=== PATIENT | female | born 1945 | race Caucasian/White ===

== ENCOUNTER 2021-06-01 14:49 | Inpatient (IN) ==
[~2021-06-01 14:49] MED LIST: DEXAMETHASONE 10 MG/ML VIAL ONE; GLYCOPYRROLATE 0.2 MG/ML VIAL IV ONE; KETAMINE 50 MG/ML Syringe (ANEST) IV ONE; LIDOCAINE HCL/PF 100 MG/5 ML SYRINGE IV ONE; MAGNESIUM SULFATE 2 GM/50 ML BAG IV ONE; MIDAZOLAM 2 MG/2 ML VIAL ONE; ONDANSETRON 4 MG/2 ML VIAL ONE; PHENYLephrine 1 MG/10 ML SYRINGE (ANEST) ONE; PROPOFOL 200 MG/20 ML VIAL IV ONE; TRANEXAMIC ACID 1,000 MG/10 ML VIAL ONE
[2021-06-01 16:02] LABS: Basophils # (Auto) 0.04 K/mcL (0.00-0.30); Basophils % (Auto) 0.3 % (0.0-2.0); Eosinophils # (Auto) 0.08 K/mcL (0.00-0.70); Eosinophils % (Auto) 0.7 % (0.0-7.0); Hematocrit 41.8 % (34.1-44.9); Hemoglobin 14.1 g/dL (11.2-15.7); Lymphocytes % (Auto) 14.7 % (15.5-49.0); Mean Cell Volume 92.7 fL (80.0-100.0); Mean Corpuscular HGB Conc 33.7 g/dL (31.0-36.0); Mean Platelet Volume 10.2 fL (7.4-10.4); Monocytes # (Auto) 0.56 K/mcL (0.10-0.90); Monocytes % (Auto) 4.8 % (1.0-12.0); Neutrophils % (Auto) 79.5 % (38.0-78.0); Platelet Count 194 K/mcL (140-440); RBC 4.51 M/mcL (3.59-5.38); Red Cell Distribution Width 12.3 % (11.5-14.5); WBC 11.6 K/mcL (4.5-11.0)
--- NOTE | 2021-06-01 16:02 | Emergency Department Note ---
Fall HPI General Chief Complaint: Fall Stated Complaint: Fall out of chair Time Seen by Provider: 06/01/21 14:58 Source: EMS Mode of arrival: EMS Limitations: no limitations History of Present Illness HPI Narrative: 76-year-old female with past medical history of hypertension, hyperlipidemia, and diabetes not on insulin presents with right hip pain after a fall. She was sitting in a chair and slipped off falling onto her right side. She was able to get back into the chair with some help but has pain in her right hip area. Did not hit her head or lose consciousness. She has some skin tears on her right elbow and right knee but denies any pain in those areas. She has pain with any flexion of the hip. No headache, neck pain, numbness, weakness, or paresthesias. Not on anticoagulation. She denies any recent fever, cough, vomiting, abdominal pain, or dysuria. Received the tetanus vaccine in 2019. Related Data Allergies Allergy/AdvReac Type Severity Reaction Status Date / Time codeine Allergy Verified 06/01/21 14:53 Review of Systems ROS ROS Narrative: Narrative: Constitutional: Denies fever and chills Eyes: Denies vision change ENT ED: Denies ear pain and throat pain Cardiovascular: Denies chest pain and palpitations Respiratory: Denies shortness of breath and cough Gastrointestinal: Denies abdominal pain, nausea and vomiting Genitourinary: Denies dysuria and frequency Musculoskeletal: Reports joint pain (Right hip); Denies back pain Integumentary: Denies rash and lesions Neurological: Denies headache and weakness Psychiatric: Denies anxiety and depression Endocrine: Denies fatigue and heat or cold intolerance Hematological/Lymphatic: Denies easy bleeding and easy bruising [facility] Narrative Patient History Narrative: Narrative: Medical/Surgical/Family History All Active Problems (Updated 06/01/21 @ 17:22 by Moses García MD) Closed displaced fracture of right femoral neck (Acute) Social History Smoking Status: Never smoker Exam Narrative Narrative: Narrative: General Limitations: no limitations General appearance: Present alert and in no apparent distress Head Head: Present atraumatic and normocephalic Eye Eye: Present normal appearance, PERRL and EOMI; Absent scleral icterus and conjunctival injection ENT ENT: Present normal oropharynx and mucous membranes moist Neck Neck: Present full ROM and trachea midline; Absent tenderness, meningismus, lymphadenopathy and thyromegaly Chest Chest: Present symmetric chest wall rise Respiratory Respiratory: Present normal lung sounds bilaterally; Absent respiratory distress, wheezes, stridor, accessory muscle use and prolonged expiratory phase Cardiovascular Cardiovascular: Present regular rate and normal rhythm; Absent systolic murmur and diastolic murmur Adbominal Abdominal: Present soft; Absent distention, tenderness, guarding, rebound, rigidity, organomegaly and mass Extremities Extremities: Absent pedal edema, pretibial edema and calf tenderness Expanded Upper Extremity Elbow: Present full ROM; Absent tenderness, swelling and deformity Expanded Lower Extremity Hip/Pelvis: Present shortening and other (Tenderness to palpation over the late ral right hip; pain with hip flexion; able to wiggle toes, no sensory deficits; 2+ DP pulse; full range of motion of right knee and no tenderness) Back Back: Absent CVA tenderness (R), CVA tenderness (L) and spinous process ten derness Neurological Neurological: Present alert, oriented X3 and CN II-XII intact Psychiatric Psychiatric: Present normal affect and normal mood Skin Skin: Present warm (WNL), dry and other (Skin tears noted to the posterior right elbow and right knee) Course Consultations Consultation #1: Dr. Reina, orthopedics Time: 16:20 Consultation #2: Dr. Smith, hospitalist Time: 17:21 Vital Signs Vital signs: Vital Signs Temperature 99.2 F H 06/01/21 14:50 Pulse Rate 96 H 06/01/21 14:50 Respiratory Rate 16 06/01/21 14:50 Blood Pressure 155/83 06/01/21 14:50 Pulse Oximetry (%) 93 06/01/21 14:50 Temperature 99.2 F H 06/01/21 14:50 Pulse Rate 112 H 06/01/21 16:47 Respiratory Rate 16 06/01/21 14:50 Blood Pressure 131/67 06/01/21 16:47 Pulse Oximetry (%) 93 06/01/21 16:47 [facility] Narrative Medical decision making narrative: 76-year-old female presenting with right hip pain after a fall. Vital signs stable. Likely right hip fracture present. Tetanus is up-to-date. Will obtain x-rays as well as preoperative labs and studies. Patient does not want pain medication at this time. X-ray shows a right femoral neck fracture. No other injuries. Neurovascularly intact. Labs are normal. Discussed with Dr. Reina orthopedics, possible surgery in the morning. Patient endorsed to Dr. Smith for admission. Lab Data Lab results reviewed: Yes I reviewed the patient's lab results. Result diagrams: 06/01/21 15:38 06/01/21 15:38 Labs: Lab Results 06/01/21 06/01/21 06/01/21 Range/Units 15:38 15:38 15:38 WBC 11.6 H (4.5-11.0) K/mcL RBC 4.51 (3.59-5.38) M/mcL Hgb 14.1 (11.2-15.7) g/dL Hct 41.8 (34.1-44.9) % MCV 92.7 (80.0-100.0) fL MCH 31.3 (26.0-34.0) pg MCHC 33.7 (31.0-36.0) g/dL RDW 12.3 (11.5-14.5) % Plt Count 194 (140-440) K/mcL MPV 10.2 (7.4-10.4) fL Neut % (Auto) 79.5 H (38.0-78.0) % Lymph % (Auto) 14.7 L (15.5-49.0) % [place] % (Auto) 4.8 (1.0-12.0) % Eos % (Auto) 0.7 (0.0-7.0) % Baso % (Auto) 0.3 (0.0-2.0) % Lymph # (Auto) 1.70 (1.50-4.80) K/mcL [place] # (Auto) 0.56 (0.10-0.90) K/mcL Eos # (Auto) 0.08 (0.00-0.70) K/mcL Baso # (Auto) 0.04 (0.00-0.30) K/mcL Absolute Neutrophils 9.18 H (1.80-8.00) K/mcL PT 13.5 (11.9-14.5) sec INR 1.0 (0.9-1.1) APTT 29.7 (20.0-37.0) sec Sodium 134 (133-145) mmol/L Potassium 3.7 (3.3-5.1) mmol/L Chloride 97 (96-108) mmol/L Carbon Dioxide 23 (22-30) mmol/L Anion Gap 14.0 (8.0-16.0) BUN 17 (8-23) mg/dL Creatinine 0.6 (0.6-1.1) mg/dL GFR Calculation 88 Glucose 130 H (70-105) mg/dL Calcium 9.9 (8.6-10.4) mg/dL Total Bilirubin 0.3 (0.1-1.0) mg/dL AST 25 (<32) U/L ALT 41 H (<40) U/L Alkaline Phosphatase 62 (39-117) U/L Total Protein 6.7 (5.9-8.4) gm/dL Albumin 4.3 (3.2-5.2) gm/dL Globulin 2.4 (2.2-3.7) gm/dL Albumin/Globulin Ratio 1.8 (1.0-2.3) Radiology Data Radiology results reviewed: Yes I reviewed the patient's radiology results. Radiology results narrative: Ordering Physician: Moses García M.D. Date of Service: 06/01/21 Procedure(s): XR chest 1V Accession Number(s): [id number] CLINICAL INFORMATION: fall COMPARISON: None. FINDINGS: Heart size, mediastinum and pulmonary vessels are normal. Lungs are clear. No effusions or evidence of pneumothorax. No fracture identified IMPRESSION: Negative Interpreted and Authenticated by: Dhaval Tineo 06/01/21 Ordering Physician: Moses García M.D. Date of Service: 06/01/21 Procedure(s): XR hip RT comp 2VW Accession Number(s): [id number] CLINICAL INFORMATION: fall COMPARISON: None. FINDINGS: Moderately comminuted transcervical fracture right hip appreciated. The distal femur displaced 1 cm superiorly with respect to femoral head. Minimal angulation deformity. There is only mild degenerative change in both SI and hip joints. Soft tissues normal IMPRESSION: Displaced acute transcervical fracture of the right femoral neck Interpreted and Authenticated by: Dhaval Tineo 06/01/21 EKG Data EKG #1: EKG attestation: Yes I reviewed and interpreted this EKG. and Yes There are no EKG findings of acute coronary syndrome EKG results narrative: Normal sinus rhythm at [address] elevation or depression. No T wave inversions. Interpretation: no acute changes and normal EKG Pulse Oximetry Data Pulse Ox %: 95 Interpretation: Normal Discharge Plan Patient/Caregiver Discharge Instructions Pt seen by CANOE INSPECTOR/PA only: No Clinical Impression: Closed displaced fracture of right femoral neck Patient Disposition: Xfer As Inpt ([facility]) Condition: Fair Follow up with: Abril Hutchins MD [Primary Care Provider] -
--- NOTE | 2021-06-01 16:10 | XRay Report ---
CLINICAL INFORMATION: fall COMPARISON: None. FINDINGS: Heart size, mediastinum and pulmonary vessels are normal. Lungs are clear. No effusions or evidence of pneumothorax. No fracture identified IMPRESSION: Negative Interpreted and Authenticated by: Dhaval Tineo 06/01/21
[2021-06-01 16:24] LABS: ALT/SGPT 41 U/L (<40); AST/SGOT 25 U/L (<32); Albumin 4.3 gm/dL (3.2-5.2); Albumin/Globulin Ratio 1.8 (1.0-2.3); Alkaline Phosphatase 62 U/L (39-117); Bilirubin,Total 0.3 mg/dL (0.1-1.0); Blood Urea Nitrogen 17 mg/dL (8-23); Calcium 9.9 mg/dL (8.6-10.4); Carbon Dioxide 23 mmol/L (22-30); Chloride 97 mmol/L (96-108); Globulin 2.4 gm/dL (2.2-3.7); Glomerular Filtration Rate 88; Glucose 130 mg/dL (70-105)
[2021-06-01 16:35] LABS: Partial Thromboplastin Time 29.7 sec (20.0-37.0); Prothrombin Time 13.5 sec (11.9-14.5)
--- NOTE | 2021-06-01 16:55 | XRay Report ---
CLINICAL INFORMATION: fall COMPARISON: None. FINDINGS: Moderately comminuted transcervical fracture right hip appreciated. The distal femur displaced 1 cm superiorly with respect to femoral head. Minimal angulation deformity. There is only mild degenerative change in both SI and hip joints. Soft tissues normal IMPRESSION: Displaced acute transcervical fracture of the right femoral neck Interpreted and Authenticated by: Dhaval Tineo 06/01/21
--- NOTE | 2021-06-01 17:29 | Internal Med History&Physical ---
HPI History of Present Illness Patient information: Note initiated : 06/01/21 at 5:26 pm Service Date, if different from initiated Date: [] Patient: Jo-Ann Ho a 76 y/o F admitted on for Fall out of chair. Chief Complaint: [] History of present illness: Ms. Ho is a 76 year old F Presents the ED with right hip pain. She was at [facility] and slipped out of her chair falling on her right hip. He imaging and ER shows right hip frac ture. She has no chest pain shortness of breath or other complaints. Dr. Reina is contacted and perform surgery likely tomorrow. Patient states she took most of her medications already today. Review of Systems: Pertinent positives as above. Denies headache/fever/chills/nausea/vomiting/chest or abdominal pain/cough/dyspnea/diarrhea. Remaining 10 point review of system reviewed negative PFSH PFSH All Active Problems (Updated 06/01/21 @ 17:22 by Moses García MD) Closed displaced fracture of right femoral neck (Acute) MEDS/ALLERGIES Home Medications and Allergies Allergies Allergy/AdvReac Type Severity Reaction Status Date / Time codeine Allergy Verified 06/01/21 14:53 EXAM Constitutional Vitals: Temp Pulse Resp BP Pulse Ox 99.2 F H 112 H 16 131/67 93 06/01/21 14:50 06/01/21 16:47 06/01/21 14:50 06/01/21 16:47 06/01/21 16:47 Exam: General: Alert, Awake, No acute Distress Eyes/N/T: EOMI, PERRL, Head/Neck: neck supple, normocephalic atraumatic CV: RRR, No murmurs, normal s1/s2 Pulm: Clear b/l, no wheezing/rhonchi/rales Abd: soft, nontender, +BS x4 Ext: no clubbing/cyanosis/edema Neuro: Alert, no focal deficits, moves all extremities, CN 2-12 grossly intact, sensations intact b/l upper/lower Skin: warm/dry DATA Data Completed and Pending Labs: Labs from last 24 hours 06/01/21 06/01/21 06/01/21 15:38 15:38 15:38 WBC 11.6 H RBC 4.51 Hgb 14.1 Hct 41.8 MCV 92.7 MCH 31.3 MCHC 33.7 RDW 12.3 Plt Count 194 MPV 10.2 Neut % (Auto) 79.5 H Lymph % (Auto) 14.7 L [place] % (Auto) 4.8 Eos % (Auto) 0.7 Baso % (Auto) 0.3 Lymph # (Auto) 1.70 [place] # (Auto) 0.56 Eos # (Auto) 0.08 Baso # (Auto) 0.04 Absolute Neutrophils 9.18 H PT 13.5 INR 1.0 APTT 29.7 Sodium 134 Potassium 3.7 Chloride 97 Carbon Dioxide 23 Anion Gap 14.0 BUN 17 Creatinine 0.6 GFR Calculation 88 Glucose 130 H Calcium 9.9 Total Bilirubin 0.3 AST 25 ALT 41 H Alkaline Phosphatase 62 Total Protein 6.7 Albumin 4.3 Globulin 2.4 Albumin/Globulin Ratio 1.8 A/P Narrative A/P Narrative: A: *Right hip fracture: *DM: *Depression/anxiety: *HTN: *Hypothyroidism: P: -Dr. Reina for orthopedic surgery -Pain per Ortho -Continue home psych meds -Continue ACEI -Hold home aspirin -SSI -Medication reconciliation -PT/OT -ppx: SCD (postop per Ortho) Time Spent With Patient Time: Total time spent is greater than 50% in coordination of care (as documented) at patient's floor/unit and/or counseling patient:
--- NOTE | 2021-06-01 18:01 | History and Physical Report ---
DATE OF ADMISSION: 06/01/2021 CHIEF COMPLAINT: Right hip pain, status post fall. HISTORY OF PRESENT ILLNESS: The patient is a 76-year-old female, who was sitting in her chair earlier today when she did slip and fall out of the chair and landing on her right side. She had immediate pain and dysfunction, was unable to get back into her chair. She denies hitting her head or loss of consciousness. However, she does have some skin tears on her right elbow and knee, but denies pain. She is unable to move her right hip joint. PAST MEDICAL HISTORY: Positive for hypertension, hyperlipidemia, and diabetes. PAST SURGICAL HISTORY: Positive for appendectomy, cholecystectomy, and breast reduction. MEDICATIONS: The patient could not recall what medication she was taking at that time and is not currently listed in her chart. REVIEW OF SYSTEMS: Positive for shoulder pain. PHYSICAL EXAMINATION: VITAL SIGNS: Most recent vital signs show a temperature of 99.2, pulse rate of 96, respiratory rate 16, blood pressure 155/83, pulse ox 93%. HEART: Regular, mildly tachycardic. LUNGS: Clear to auscultation bilaterally. EXTREMITIES: Right hip, she is unable to actively or passively move the hip due to pain. She does have a slightly shortened internally rotated right lower extremity. She does have tenderness to palpation over the right greater trochanter. She does have some mild swelling and ecchymosis noted. She is able to plantar flex and dorsiflex the right ankle. She has palpable pedal pulse and good capillary refill. Left lower extremity, she has 5/5 strength in the ankle at the plantar flexion and dorsiflexion. She is able to flex and extend her left knee as well as actively flex the left hip. She has no tenderness to palpation or swelling, palpable pedal pulse and good capillary refill. DIAGNOSTIC DATA: Review of x-rays, 3-view of the hip do show displaced right femoral neck fracture. These were reviewed with Dr. Reina today. Pertinent lab work, white count is mildly elevated at 11.6. IMPRESSION: There is a right displaced femoral neck fracture. PLAN: The patient would like to proceed with a right hemihip arthroplasty to be performed by Dr. Hudson. I did have a long discussion with the patient as well as her and her sister regarding the procedure and the postoperative protocol. I advised the patient of risk of surgery including bleeding; infection; injuring nerves, blood vessels, other structures in the area; anesthetic risk which may lead to potential heart attacks, stroke, or even . The patient was agreeable to this. We will proceed with surgery tomorrow morning or early afternoon. CHATO:feb Job ID: [id number] Doc ID: [id number] Gulshan Whatley PA-C
--- NOTE | 2021-06-01 18:39 | EKG ---
[facility] Test Date: 2021-06-01 Pat Name: Jo-Ann Ho Department: ED Room: Gender: Female Parking Station Attendant: HS : 1945 Requested By: Moses García Order Number: [id number] Reading MD: Gene Whipple Measurements Intervals Gracey Rate: 99 P: 52 MT: 176 QRS: -66 QRSD: 82 T: 16 QT: 344 QTc: 442 Interpretive Statements SINUS RHYTHM PROBABLE INFERIOR INFARCT, AGE INDETERMINATE Electronically Signed On 06-01-2021 18:38:53 PDT by Gene Whipple /store/M0/[id number].pdf
[2021-06-01] MEDS ORDERED: MAG HYDROX/AL HYDROX/SIMETH 30 ML ORAL.SUSP PO PRN (19:42)
[2021-06-01] MEDS ORDERED: POTASSIUM CHLORIDE 40 MEQ in DEXTROSE 5% IN WATER 500 ML IV PRN (19:56)
[2021-06-01] MEDS ORDERED: hydrALAZINE 20 MG/ML VIAL IV PRN (19:56)
[2021-06-01] MEDS ORDERED: POTASSIUM CHLORIDE 20 MEQ TABLET PO PRN ×2 (19:56)
[2021-06-01] MEDS ORDERED: IPRATROPIUM/ALBUTEROL 3 ML AMPUL.NEB NEB PRN (19:56)
[2021-06-01] MEDS ORDERED: POLYETHYLENE GLYCOL 3350 17 GM PACKET PO PRN (19:56)
[2021-06-01] MEDS ORDERED: morphine 4 MG/ML VIAL IV PRN (19:56)
[2021-06-01] MEDS ORDERED: METOCLOPRAMIDE 10 MG/2 ML VIAL IV PRN (19:56)
[2021-06-01] MEDS ORDERED: DEXTROSE 31 GM ORAL.SUSP PO PRN (19:56)
[2021-06-01] MEDS ORDERED: MAGNESIUM SULFATE 2 GM/50 ML BAG IV PRN (19:56)
[2021-06-01] MEDS ORDERED: ONDANSETRON 4 MG/2 ML VIAL IV PRN (19:56)
[2021-06-01] MEDS ORDERED: DEXTROSE 50% 50 ML VIAL IV PRN (19:56)
[2021-06-01] MEDS ORDERED: SENNOSIDES 1 TABLET PO PRN (19:56)
[2021-06-01] MEDS: DOCUSATE SODIUM 100 MG CAPSULE PO SCH (20:24)
[2021-06-01] MEDS ORDERED: AMITRIPTYLINE 10 MG TABLET PO SCH (21:00)
[2021-06-01] MEDS: INSULIN LISPRO 1 UNIT/0.01 ML UNIT SQ SCH (21:12)
[2021-06-01] MEDS: 0.9 % SODIUM CHLORIDE 10 ML SYRINGE IV SCH (21:13)
[2021-06-01] MEDS: HYDROcodone/APAP 5/325MG TABLET PO PRN (21:16)
[2021-06-02] MEDS: 0.9 % SODIUM CHLORIDE 10 ML SYRINGE IV SCH ×3 (04:10→21:34)
[2021-06-02] MEDS ORDERED: SCOPOLAMINE 1 PATCH PATCH TOPICAL PRN (06:30)
[2021-06-02] MEDS ORDERED: IPRATROPIUM/ALBUTEROL 3 ML AMPUL.NEB NEB PRN ×2 (06:30→08:58)
[2021-06-02] MEDS ORDERED: ceFAZolin 2 GM in DEXTROSE 5% IN WATER 50 ML IV SCH ×2 (07:15→09:00)
[2021-06-02] MEDS: INSULIN LISPRO 1 UNIT/0.01 ML UNIT SQ SCH ×4 (07:15→21:34)
--- NOTE | 2021-06-02 08:07 | Internal Med Progress Note ---
SUBJECTIVE Subjective Patient information: Note initiated : 06/02/21 at 8:05 am Service Date, if different from initiated Date: [] Patient: Jo-Ann Ho a 76 y/o F admitted on 06/01/21 for Fall out of chair. Chief Complaint: [] Interval history: History of present illness: Ms. Ho is a 76 year old F Presents the ED with right hip pain. She was at [facility] and slipped out of her chair falling on her right hip. He imaging and ER shows right hip fracture. She has no chest pain shortness of breath or other complaints. Dr. Reina is contacted and perform surgery likely tomorrow. Patient states she took most of her medications already today. 06/02 Patient now status post hemiarthroplasty. Pain controlled. Review of Systems: denies headache/fever/chills/nausea/vomiting/chest or abdominal pain/cough/dyspnea/diarrhea. Otherwise see above. Constitutional Vitals: Vital Signs Temp Pulse Resp BP Pulse Ox 98 F 99 H 20 118/69 93 06/02/21 04:15 06/02/21 04:15 06/02/21 04:15 06/02/21 04:15 06/02/21 04:15 Period Temp Pulse Resp BP Sys/Agrawal Pulse Ox Last 24 Hr 97.8 F-99.2 F 95-121 16-26 115-155/62-139 84-97 Intake and Output 06/01/21 06/02/21 06/02/21 21:59 05:59 13:59 Intake Total 480 Output Total 425 Balance 55 Weight 58.513 kg Intake & Output: Intake & Output 06/01/21 06/02/21 06/02/21 21:59 05:59 13:59 Intake Total 480 Output Total 425 Balance 55 Weight 58.513 kg Intake: Oral 480 Output: Urine Catheter Amount 425 Other: Urine Appearance Clear Urine Color Dark Yellow Uretheral (Boogie) Bright Yellow Urine Odor Strong Exam: General: Alert, Awake, No acute Distress Eyes/N/T: EOMI, Head/Neck: neck supple, CV: RRR, No murmurs, Pulm: Clear b/l, no wheezing/rhonchi/rales Abd: soft, nontender, +BS x4 Ext: no clubbing/cyanosis/edema Neuro: Alert, no focal deficits, moves all extremities, Skin: warm/dry OBJ DATA Labs CBC & Chem 7: 06/01/21 15:38 06/01/21 15:38 Labs: Abnormal Lab Results 06/01/21 06/01/21 15:38 15:38 WBC 11.6 H Neut % (Auto) 79.5 H Lymph % (Auto) 14.7 L Absolute Neutrophils 9.18 H Glucose 130 H ALT 41 H Meds: Medications Acetaminophen (Acetaminophen 325 Mg Tablet) 650 mg PO Q6HP PRN; Protocol PRN Reason: Per Pain Protocol/Fever > 101 Hydrocodone Bitart/Acetaminophen (Hydrocodone/Apap 5/325mg Tablet) 1 tab PO Q4HP PRN PRN Reason: PAIN LEVEL 3-6 Last Admin: 06/01/21 21:16 Dose: 1 tab Documented by: Al Hydrox/Mg Hydrox/Simethicone (Mag Hydrox/Al Hydrox/Simeth 30 Ml Oral.Susp) 30 ml PO Q4-6HP PRN PRN Reason: Dyspepsia Albuterol/Ipratropium (Ipratropium/Albuterol 3 Ml Ampul.Neb) 3 ml NEB Q4HP PRN PRN Reason: Shortness Of Breath Albuterol/Ipratropium (Ipratropium/Albuterol 3 Ml Ampul.Neb) 3 ml NEB ONCE PRN PRN Reason: Shortness Of Breath Stop: 06/02/21 16:30 Amitriptyline HCl (Amitriptyline 10 Mg Tablet) 10 mg PO [facility] Last Admin: 06/01/21 21:13 Dose: 10 mg Documented by: Dextrose (Dextrose 50% 50 Ml Vial) 0 ml IV UD PRN PRN Reason: Hypoglycemia Diagnostic Test (Pha) (Accu-Chek 1 Each Strip) 1 each FS [facility] Last Admin: 06/02/21 07:13 Dose: Not Given Documented by: Docusate Sodium (Docusate Sodium 100 Mg Capsule) 100 mg PO BID [facility] Last Admin: 06/01/21 20:24 Dose: Not Given Documented by: Glucose (Dextrose 31 Gm Oral.Susp) 15 gm PO PRN PRN PRN Reason: Hypoglycemia Hydralazine HCl (Hydralazine 20 Mg/Ml Vial) 0 mg IV Q2HP PRN PRN Reason: Hypertension Potassium Chloride 40 meq/ (Dextrose) 520 mls @ 130 mls/hr IV UD PRN PRN Reason: Potassium < 3 Magnesium Sulfate (Magnesium Sulfate) 2 gm in 50 mls @ 50 mls/hr IV UD PRN PRN Reason: Magnesium </= 1.6 Sodium Chloride (Sodium Chloride 0.9%) 1,000 mls @ 50 mls/hr IV .Q20H [facility] Last Admin: 06/02/21 00:00 Dose: 50 mls/hr Documented by: Cefazolin Sodium 2 gm/ (Dextrose) 50 mls @ 100 mls/hr IV PREOP ISAIAH; Protocol Stop: 06/02/21 17:00 Insulin Human Lispro (Insulin Lispro 1 Unit/0.01 Ml Unit) 0 unit SQ ACHS [facility]; Protocol Last Admin: 06/02/21 07:15 Dose: Not Given Documented by: Metoclopramide HCl (Metoclopramide 10 Mg/2 Ml Vial) 10 mg IV Q6HP PRN PRN Reason: Nausea And Vomiting Morphine Sulfate (Morphine 4 Mg/Ml Vial) 0 mg IV Q3HP PRN PRN Reason: Pain Last Admin: 06/02/21 04:09 Dose: 2 mg Documented by: Ondansetron HCl (Ondansetron 4 Mg/2 Ml Vial) 4 mg IV Q4HP PRN PRN Reason: Nausea And Vomiting Polyethylene Glycol (Polyethylene Glycol 3350 17 Gm Packet) 17 gm PO DAILYP PRN PRN Reason: Constipation Potassium Chloride (Potassium Chloride 20 Meq Tablet) 40 meq PO UD PRN PRN Reason: Potssium is 3-3.5 Potassium Chloride (Potassium Chloride 20 Meq Tablet) 40 meq PO UD PRN PRN Reason: Potassium < 3 Scopolamine (Scopolamine 1 Patch Patch) 1 patch TOPICAL PREOP PRN PRN Reason: Nausea And Vomiting Stop: 06/02/21 16:30 Senna (Sennosides 1 Tablet) 2 tab PO DAILYP PRN PRN Reason: Constipation Sodium Chloride (0.9 % Sodium Chloride 10 Ml Syringe) 10 ml IV Q8 ISAIAH Last Admin: 06/02/21 04:10 Dose: Not Given Documented by: A/P Narrative A/P Narrative: A: *Right hip fracture: s/p ORIF (06/02) *DM: *Depression/anxiety: *Hypothyroidism: P: -Dr. Reina for orthopedic surgery -Pain per Ortho -Continue home psych meds -Hold home aspirin -SSI -PT/OT -ppx: lovenox per postop Ortho orders Time Spent With Patient Time: Total time spent is greater than 50% in coordination of care (as documented) at patient's floor/unit and/or counseling patient:
[2021-06-02] MEDS ORDERED: BENZOCAINE/MENTHOL 1 LOZENGE PO PRN ×2 (08:57→08:58)
[2021-06-02] MEDS ORDERED: BISACODYL 10 MG SUPP.RECT PR PRN (08:57)
[2021-06-02] MEDS ORDERED: KETOROLAC 15 MG/ML VIAL IV PRN ×2 (08:57→08:58)
[2021-06-02] MEDS ORDERED: MAGNESIUM HYDROXIDE 30 ML ORAL.SUSP PO PRN (08:57)
[2021-06-02] MEDS ORDERED: FLEETS ADULT ENEMA PR PRN (08:57)
--- NOTE | 2021-06-02 08:57 | Brief Operative Note ---
Brief Operative Note Date of procedure: 06/02/21 Pre-op diagnosis: Right hip displaced femoral neck fracture Post-op diagnosis: same Procedure: Open treatment of femoral neck fracture with prosthetic hemiarthroplasty Grafts/Implants: Yes (Depuy Actis 8 std stem, +1.5 32 head, 44 bipolar head) Anesthesia: GETA Findings: displaced femoral neck fracture Complications: none Surgeon: Marco Reina Verifier Operator: Gulshan Whatley Estimated blood loss (cc): 150 Specimens Removed/Pathology: none sent Condition: stable Disposition: PACU
[2021-06-02] MEDS ORDERED: fentaNYL 100 MCG/2 ML VIAL IV PRN (08:58)
[2021-06-02] MEDS ORDERED: ONDANSETRON 4 MG/2 ML VIAL IV PRN (08:58)
[2021-06-02] MEDS ORDERED: ACETAMINOPHEN 850 MG/85 ML BAG IV ONE (08:58)
[2021-06-02] MEDS ORDERED: METHOCARBAMOL 1,000 MG/10 ML VIAL IV PRN (08:58)
[2021-06-02] MEDS ORDERED: METOPROLOL TARTRATE 5 MG/5 ML VIAL IV PRN (08:58)
[2021-06-02] MEDS ORDERED: MEPERIDINE 25 MG/ML VIAL IV PRN (08:58)
[2021-06-02] MEDS ORDERED: [UNRECOGNIZED DRUG - OTHER] PO SCH (09:00)
[2021-06-02] MEDS ORDERED: LACTATED RINGERS 1,000 ML IV SCH (09:00)
[2021-06-02] MEDS ORDERED: DICLOFENAC SODIUM 75 MG PO SCH (09:00)
--- NOTE | 2021-06-02 09:47 | Operative Note ---
DATE OF OPERATION: 06/02/2021 PREOPERATIVE DIAGNOSIS: Displaced right femoral neck fracture. POSTOPERATIVE DIAGNOSIS: Displaced right femoral neck fracture. PROCEDURE PERFORMED: Open treatment of right displaced femoral neck fracture with prosthetic hemiarthroplasty placing a DePuy ACTIS size 8 standard offset femoral stem; a +1.5, 28 mm delta ceramic head with a 44 bipolar head. SURGEON: Marco Reina M.D. PLATE PUT IN WORKER: Austin Mas PA-C. The PA's assistance was required for the safe and efficient completion of the entire case. This provider's expertise and technical skill were required throughout the case. The PA assisted with preoperative coordination, intraoperative retraction, wound closure, dressing and splint application, as well as postoperative documentation and care coordination. DRAINS: None. SPECIMEN: Femoral head, which was discarded ESTIMATED BLOOD LOSS: 150 mL. POSTOPERATIVE CONDITION: Stable. INDICATIONS FOR SURGERY: This is a 76-year-old female who sustained a fall yesterday, had pain and inability to bear weight. Radiographs were taken in the ER, which showed a displaced femoral neck fracture. FINDINGS AT SURGERY: Displaced femoral neck fracture. Post-procedure showed good overall component position with leg lengths relatively equal. PROCEDURE IN DETAIL: The patient had been seen preoperatively. Informed consent obtained after discussion of risks and benefits of surgery. Risks including, but not limited to, bleeding; infection; injury to nerves, blood vessels, and other surrounding structures; anesthetic risks; incomplete or no resolution of symptoms; leg length discrepancy; dislocation; fracture; DVT and pulmonary embolus risks; and the possibility of needing further revision joint surgery. The patient understood these risks and wished to proceed. Correct operative site was marked and then spinal anesthesia given. The patient was then taken to the operating room and LMA general given. The patient was carefully transferred to the fracture table and then the operative hip was carefully prepped and draped in normal sterile fashion. Timeout was performed verifying patient name, operative site, and plan. Ioban was used to cover all skin surfaces. A standard anterior approach incision was made with a scalpel through skin and subcutaneous tissue. Hemostasis was obtained with Bovie cautery. Careful blunt dissection was taken down on the tensor fascia and then this was undermined circumferentially. IrriSept was irrigated and a ring retractor placed. Tensor fascia was incised in line with muscle fibers and then careful blunt dissection taken medial to the muscle belly. Blunt cobra retractors were placed on the superior and inferior femoral neck and then circumflex vessels were coagulated and cut and vastus fascia split distally. Anterior capsulectomy was performed and then the capsule releases. Corkscrew was placed in the femoral head. Prior to placement of the corkscrew we did take x-rays for joint point. A femoral neck cut was made with the oscillating saw as a freshening cut over the fracture instead of a marking with an osteotome using fluoroscopy. We did go ahead and place a corkscrew in the femoral head and then this was removed. This was taken to the back table and it did not fit through a 44 and did fit through a 45 sizer, so we chose a 44 head. We cleaned the acetabulum of any bone fragments and then trialed the 44 head, which fit nicely. We then went and exposed the femur, externally rotating the leg maximally. Traction was removed and the leg was extended and adducted. Femoral head was removed and the acetabulum exposed. Labrum was excised circumferentially as well as soft tissue from the floor. We then irrigated with IrriSept. We then began sequentially reaming until 1 mm smaller than the final implant. We then opened the acetabular component. IrriSept was irrigated, after a minute pulse lavaged with saline and then the cup was impacted using the [id number]. Joint point was used to verify satisfactory cup position. A center hole cover was placed and then the acetabular liner was carefully aligned and impacted and carefully verified to be fully seated. We then released traction. The leg was externally rotated and released capsule around the medial neck. The leg was then extended and adducted. Capsule was released out towards greater trochanter and then the proximal femur was exposed. Box osteotome was used to gain canal entry and an awl was used to identify canal trajectory. Rongeur and rasp were used to lateralize and then we began sequentially broaching up to the final size. We calcar planed down onto the broach and then the neck trial and head ball were placed. The hip was reduced. Fluoro was brought in and x-rays taken, joint point was used to verify satisfactory position. We then re-dislocated and removed the trial implants. Definitive implants were opened. We then irrigated the femoral canal with IrriSept again, after a minute pulse lavaged with saline. The final stem was impacted and seated. We then opened the head ball. The stem was carefully cleaned and dried and the head ball was impacted. We then reduced the hip with satisfactory tension. Final fluoro images were taken and saved. We irrigated the joint with IrriSept, after a minute pulse lavaged with saline again and then closed the tensor fascia with two running #1 Vicryls, one running proximal, one running distal and a ring retractor was removed. Final IrriSept irrigation was done, after a minute final pulse lavage, and then fat was tacked to fascia with Vicryl and then 2-0 Monocryl for subcutaneous and [place] Zip closure for skin. Xeroform and sterile dressing were applied. The patient was then awakened, extubated, and transferred to recovery in stable condition. [id number]:[id number] Job ID: [id number] Doc ID: [id number] Marco Reina MD
--- NOTE | 2021-06-02 10:23 | XRay Report ---
CLINICAL INFORMATION: Follow-up right femoral neck fracture FINDINGS: The right hip prostheses is anatomically aligned. The left hip is normal. There are no osseous abnormalities. Soft tissue swelling over the surgical site-as expected. IMPRESSION: Right hip prostheses in anatomic alignment. Interpreted and Authenticated by: Dhaval Tineo 06/02/21
--- NOTE | 2021-06-02 10:35 | XRay Report ---
CLINICAL INFORMATION: Right Pierre Hip COMPARISON: None. FINDINGS: Multiple digital images from the OR are submitted. Final film shows right hemiarthroplasty changes anatomically aligned IMPRESSION: Right hemiarthroplasty anatomic alignment. Total fluoroscopy time 0.1 minutes Interpreted and Authenticated by: Dhaval Tineo 06/02/21
[2021-06-02 10:44] LABS: Appearance,Urine CLEAR (Clear); Bilirubin,Urine Negative (Negative); Color,Urine YELLOW; Culture Indicated,Urine No; Glucose,Urine (UA) 50 mg/dL (Negative); Ketones,Urine Negative (Negative); Leukocyte Esterase,Urine Negative /uL (Negative); Nitrate,Urine Negative (Negative); Protein,Urine Negative (Negative); Specific Gravity,Urine 1.009 (1.000-1.035); Urine Blood >=1.0 mg/dL (Negative); Urine RBC 1 /hpf (0-3); Urine Squamous Epithelial Cell 0 /hpf (0-4); Urine WBC 1 /hpf (0-4); Urobilinogen,Urine Negative
[2021-06-02] MEDS: buPROPion 150 MG TAB.XL.24H PO SCH ×2 (17:35→17:37)
[2021-06-02] MEDS: DOCUSATE SODIUM 100 MG CAPSULE PO SCH ×2 (17:35→21:18)
[2021-06-02] MEDS: LEVOTHYROXINE 88 MCG TABLET PO SCH (17:35)
[2021-06-02] MEDS: ceFAZolin 1 GM VIAL IV SCH (17:36)
[2021-06-02] MEDS: 0.9 % SODIUM CHLORIDE 1,000 ML IV SCH ×2 (21:12)
[2021-06-02] MEDS: CITALOPRAM 20 MG TABLET PO SCH (21:18)
[2021-06-02] MEDS: LISINOPRIL 2.5 MG TABLET PO SCH (21:33)
[2021-06-02] MEDS: SIMVASTATIN 10 MG TABLET PO SCH (21:33)
[2021-06-02] MEDS: AMITRIPTYLINE 10 MG TABLET PO SCH (21:34)
[2021-06-03] MEDS: ceFAZolin 1 GM VIAL IV SCH (01:24)
[2021-06-03] MEDS: HYDROcodone/APAP 5/325MG TABLET PO PRN (03:36)
[2021-06-03] MEDS: 0.9 % SODIUM CHLORIDE 10 ML SYRINGE IV SCH ×3 (04:48→21:22)
[2021-06-03] MEDS: LEVOTHYROXINE 88 MCG TABLET PO SCH (07:17)
[2021-06-03] MEDS: ACETAMINOPHEN 325 MG TABLET PO PRN (07:17)
--- NOTE | 2021-06-03 08:21 | Internal Med Progress Note ---
SUBJECTIVE Subjective Patient information: Note initiated : 06/03/21 at 8:20 am Service Date, if different from initiated Date: [] Patient: Jo-Ann Ho a 76 y/o F admitted on 06/01/21 for Fall out of chair. Chief Complaint: [] Interval history: History of present illness: Ms. Ho is a 76 year old F Presents the ED with right hip pain. She was at [facility] and slipped out of her chair falling on her right hip. He imaging and ER shows right hip fracture. She has no chest pain shortness of breath or other complaints. Dr. Reina is contacted and perform surgery likely tomorrow. Patient states she took most of her medications already today. 06/02 Patient now status post hemiarthroplasty. Pain controlled. 06/03 Feeling well postop. Pain controlled. No acute issues. Review of Systems: denies headache/fever/chills/nausea/vomiting/chest or abdominal pain/cough/dyspnea/diarrhea. Otherwise see above. Constitutional Vitals: Vital Signs Temp Pulse Resp BP Pulse Ox 98.3 F 106 H 18 110/56 93 06/03/21 06:51 06/03/21 06:51 06/03/21 06:51 06/03/21 06:51 06/03/21 06:51 Period Temp Pulse Resp BP Sys/Agrawal Pulse Ox Last 24 Hr 97.0 F-98.9 F 91-110 15-20 94-138/46-99 88-97 Intake and Output 06/02/21 06/03/21 06/03/21 21:59 05:59 13:59 Intake Total 6935 491 7036 Output Total 2850 950 Balance -1760 -470 1000 Weight 59.562 kg Intake & Output: Intake & Output 06/02/21 06/03/21 06/03/21 21:59 05:59 13:59 Intake Total 0427 853 7981 Output Total 2850 950 Balance -1760 -470 1000 Weight 59.562 kg Intake: IV 50 1000 Sodium Chloride 0.9% 1,000 ml @ 1000 50 mls/hr IV .Q20H [facility] Rx#: [id number] Ancef 2 gm In Dextrose 5% in 50 Water 50 ml @ 100 mls/hr IV Q8H [facility] Rx#:[id number] Oral 1040 480 Output: Urine Catheter Amount 950 Void Amount 2850 Other: Meal Dinner Percent of Meal Consumed 75% Feeding Ability Independent Urine Appearance Clear Clear Clear Urine Color Pale Light Inga Urine Odor Normal Normal Exam: General: Alert, Awake, No acute Distress Eyes/N/T: EOMI, Head/Neck: neck supple, CV: RRR, No murmurs, Pulm: Clear b/l, no wheezing/rhonchi/rales Abd: soft, nontender, +BS x4 Ext: no clubbing/cyanosis/edema Neuro: Alert, no focal deficits, moves all extremities, Skin: warm/dry OBJ DATA Labs CBC & Chem 7: 06/01/21 15:38 06/01/21 15:38 Labs: Abnormal Lab Results 06/02/21 06/01/21 06/01/21 06:55 15:38 15:38 WBC 11.6 H Neut % (Auto) 79.5 H Lymph % (Auto) 14.7 L Absolute Neutrophils 9.18 H Glucose 130 H ALT 41 H Urine Glucose (UA) 50 A Urine Occult Blood >=1.0 A Meds: Medications Acetaminophen (Acetaminophen 325 Mg Tablet) 650 mg PO Q6HP PRN; Protocol PRN Reason: Per Pain Protocol/Fever > 101 Last Admin: 06/03/21 07:17 Dose: 650 mg Documented by: Hydrocodone Bitart/Acetaminophen (Hydrocodone/Apap 5/325mg Tablet) 1 tab PO Q4HP PRN PRN Reason: PAIN LEVEL 3-6 Last Admin: 06/03/21 03:36 Dose: 1 tab Documented by: Albuterol/Ipratropium (Ipratropium/Albuterol 3 Ml Ampul.Neb) 3 ml NEB Q4HP PRN PRN Reason: Shortness Of Breath Amitriptyline HCl (Amitriptyline 10 Mg Tablet) 10 mg PO [facility] Last Admin: 06/02/21 21:34 Dose: 10 mg Documented by: Bisacodyl (Bisacodyl 10 Mg Supp.Rect) 10 mg [place] Q2-3DAYS PRN PRN Reason: Constipation Bupropion HCl (Bupropion 150 Mg Tab.Xl.24h) [facility] [place] Last Admin: 06/02/21 17:37 Dose: 150 mg Documented by: Citalopram Hydrobromide (Citalopram 20 Mg Tablet) 40 mg PO [facility] Last Admin: 06/02/21 21:18 Dose: 40 mg Documented by: Dextrose (Dextrose 50% 50 Ml Vial) 0 ml IV UD PRN PRN Reason: Hypoglycemia Diagnostic Test (Pha) (Accu-Chek 1 Each Strip) 1 each FS ACHS [facility] Last Admin: 06/03/21 07:27 Dose: 1 each Documented by: Docusate Sodium (Docusate Sodium 100 Mg Capsule) 100 mg PO BID [facility] Last Admin: 06/02/21 21:18 Dose: 100 mg Documented by: Enoxaparin Sodium (Enoxaparin 30 Mg/0.3 Ml Syringe) 30 mg SQ BID [facility] Glucose (Dextrose 31 Gm Oral.Susp) 15 gm PO PRN PRN PRN Reason: Hypoglycemia Hydralazine HCl (Hydralazine 20 Mg/Ml Vial) 0 mg IV Q2HP PRN PRN Reason: Hypertension Potassium Chloride 40 meq/ (Dextrose) 520 mls @ 130 mls/hr IV UD PRN PRN Reason: Potassium < 3 Magnesium Sulfate (Magnesium Sulfate) 2 gm in 50 mls @ 50 mls/hr IV UD PRN PRN Reason: Magnesium </= 1.6 Sodium Chloride (Sodium Chloride 0.9%) 1,000 mls @ 50 mls/hr IV .Q20H [facility] Last Infusion: 06/03/21 06:39 Dose: Infused Documented by: Insulin Human Lispro (Insulin Lispro 1 Unit/0.01 Ml Unit) 0 unit SQ [facility]; Protocol Last Admin: 06/02/21 21:34 Dose: 6 unit Documented by: Ketorolac Tromethamine (Ketorolac 15 Mg/Ml Vial) 15 mg IV Q6HP PRN; Protocol PRN Reason: Per Pain Protocol Stop: 06/04/21 09:01 Levothyroxine Sodium (Levothyroxine 88 Mcg Tablet) 88 mcg PO ACB [facility] Last Admin: 06/03/21 07:17 Dose: 88 mcg Documented by: Lisinopril (Lisinopril 2.5 Mg Tablet) 2.5 mg PO HS [facility] Last Admin: 06/02/21 21:33 Dose: 2.5 mg Documented by: Magnesium Hydroxide (Magnesium Hydroxide 30 Ml Oral.Susp) 30 ml PO BIDP PRN PRN Reason: Constipation Metoclopramide HCl (Metoclopramide 10 Mg/2 Ml Vial) 10 mg IV Q6HP PRN PRN Reason: Nausea And Vomiting Morphine Sulfate (Morphine 4 Mg/Ml Vial) 0 mg IV Q3HP PRN PRN Reason: Pain Last Admin: 06/02/21 04:09 Dose: 2 mg Documented by: Ondansetron HCl (Ondansetron 4 Mg/2 Ml Vial) 4 mg IV Q4HP PRN PRN Reason: Nausea And Vomiting Polyethylene Glycol (Polyethylene Glycol 3350 17 Gm Packet) 17 gm PO DAILYP PRN PRN Reason: Constipation Potassium Chloride (Potassium Chloride 20 Meq Tablet) 40 meq PO UD PRN PRN Reason: Potssium is 3-3.5 Potassium Chloride (Potassium Chloride 20 Meq Tablet) 40 meq PO UD PRN PRN Reason: Potassium < 3 Senna (Sennosides 1 Tablet) 2 tab PO DAILYP PRN PRN Reason: Constipation Simvastatin (Simvastatin 10 Mg Tablet) 10 mg PO HS [facility] Last Admin: 06/02/21 21:33 Dose: 10 mg Documented by: Sodium Biphosphate/Sodium Phosphate (Fleets Adult Enema) 1 dose [place] Q3-4DAYS PRN PRN Reason: Constipation Sodium Chloride (0.9 % Sodium Chloride 10 Ml Syringe) 10 ml IV Q8 [facility] Last Admin: 06/03/21 04:48 Dose: Not Given Documented by: Throat Lozenges (Benzocaine/Menthol 1 Lozenge) 1 lozenge PO PRN PRN PRN Reason: Sore Throat A/P Narrative A/P Narrative: A: *Right hip fracture: s/p ORIF (06/02) *DM: *Depression/anxiety: *Hypothyroidism: P: -Dr. Reina for orthopedic surgery -Pain per Ortho -Continue home psych meds -Hold home aspirin for now -SSI -PT/OT -ppx: lovenox per postop Ortho orders Time Spent With Patient Time: Total time spent is greater than 50% in coordination of care (as documented) at patient's floor/unit and/or counseling patient:
[2021-06-03] MEDS: INSULIN LISPRO 1 UNIT/0.01 ML UNIT SQ SCH ×4 (08:27→21:21)
[2021-06-03] MEDS: buPROPion 150 MG TAB.XL.24H PO SCH (08:28)
[2021-06-03] MEDS: DOCUSATE SODIUM 100 MG CAPSULE PO SCH ×2 (08:28→21:22)
[2021-06-03] MEDS: ENOXAPARIN 30 MG/0.3 ML SYRINGE SQ SCH ×2 (08:28→21:21)
--- NOTE | 2021-06-03 10:07 | Orthopedic Progress Note ---
SUBJECTIVE Subjective Patient information: Note initiated : 06/03/21 at 9:59 am Service Date, if different from initiated Date: [] Patient: Jo-Ann Ho 76 y/o F admitted on 06/01/21 for Fall out of chair. Chief Complaint: [s/p right hemiarthroplasty] Constitutional Vitals: Vital Signs Temp Pulse Resp BP Pulse Ox 98.3 F 106 H 18 110/56 93 06/03/21 06:51 06/03/21 06:51 06/03/21 06:51 06/03/21 06:51 06/03/21 06:51 Period Temp Pulse Resp BP Sys/Agrawal Pulse Ox Last 24 Hr 97.8 F-98.3 F 91-110 16-20 94-131/46-76 88-95 Intake and Output 06/02/21 06/03/21 06/03/21 21:59 05:59 13:59 Intake Total 1856 296 4797 Output Total 2850 950 Balance -1760 -470 1000 Weight 131 lb 5 oz Intake & Output: Intake & Output 06/02/21 06/03/21 06/03/21 21:59 05:59 13:59 Intake Total 8367 176 2153 Output Total 2850 950 Balance -1760 -470 1000 Weight 131 lb 5 oz Intake: IV 50 1000 Sodium Chloride 0.9% 1,000 ml @ 1000 50 mls/hr IV .Q20H [facility] Rx#: [id number] Ancef 2 gm In Dextrose 5% in 50 Water 50 ml @ 100 mls/hr IV Q8H [facility] Rx#:[id number] Oral 1040 480 Output: Urine Catheter Amount 950 Void Amount 2850 Other: Meal Dinner Breakfast Percent of Meal Consumed 75% 75% Feeding Ability Independent Independent Urine Appearance Clear Clear Clear Urine Color Pale Light Inga Urine Odor Normal Normal OBJ DATA Labs CBC & Chem 7: 06/01/21 15:38 06/01/21 15:38 Labs: Abnormal Lab Results 06/02/21 06/01/21 06/01/21 06:55 15:38 15:38 WBC 11.6 H Neut % (Auto) 79.5 H Lymph % (Auto) 14.7 L Absolute Neutrophils 9.18 H Glucose 130 H ALT 41 H Urine Glucose (UA) 50 A Urine Occult Blood >=1.0 A Meds: Medications Acetaminophen (Acetaminophen 325 Mg Tablet) 650 mg PO Q6HP PRN; Protocol PRN Reason: Per Pain Protocol/Fever > 101 Last Admin: 06/03/21 07:17 Dose: 650 mg Documented by: Hydrocodone Bitart/Acetaminophen (Hydrocodone/Apap 5/325mg Tablet) 1 tab PO Q4HP PRN PRN Reason: PAIN LEVEL 3-6 Last Admin: 06/03/21 03:36 Dose: 1 tab Documented by: Albuterol/Ipratropium (Ipratropium/Albuterol 3 Ml Ampul.Neb) 3 ml NEB Q4HP PRN PRN Reason: Shortness Of Breath Amitriptyline HCl (Amitriptyline 10 Mg Tablet) 10 mg PO [facility] Last Admin: 06/02/21 21:34 Dose: 10 mg Documented by: Bisacodyl (Bisacodyl 10 Mg Supp.Rect) 10 mg [place] Q2-3DAYS PRN PRN Reason: Constipation Bupropion HCl (Bupropion 150 Mg Tab.Xl.24h) 150 mg PO QAM [facility] Last Admin: 06/03/21 08:28 Dose: 150 mg Documented by: Citalopram Hydrobromide (Citalopram 20 Mg Tablet) 40 mg PO [facility] Last Admin: 06/02/21 21:18 Dose: 40 mg Documented by: Dextrose (Dextrose 50% 50 Ml Vial) 0 ml IV UD PRN PRN Reason: Hypoglycemia Diagnostic Test (Pha) (Accu-Chek 1 Each Strip) 1 each FS ACHS [facility] Last Admin: 06/03/21 07:27 Dose: 1 each Documented by: Docusate Sodium (Docusate Sodium 100 Mg Capsule) 100 mg PO BID [facility] Last Admin: 06/03/21 08:28 Dose: 100 mg Documented by: Enoxaparin Sodium (Enoxaparin 30 Mg/0.3 Ml Syringe) 30 mg SQ BID [facility] Last Admin: 06/03/21 08:28 Dose: 30 mg Documented by: Glucose (Dextrose 31 Gm Oral.Susp) 15 gm PO PRN PRN PRN Reason: Hypoglycemia Hydralazine HCl (Hydralazine 20 Mg/Ml Vial) 0 mg IV Q2HP PRN PRN Reason: Hypertension Potassium Chloride 40 meq/ (Dextrose) 520 mls @ 130 mls/hr IV UD PRN PRN Reason: Potassium < 3 Magnesium Sulfate (Magnesium Sulfate) 2 gm in 50 mls @ 50 mls/hr IV UD PRN PRN Reason: Magnesium </= 1.6 Insulin Human Lispro (Insulin Lispro 1 Unit/0.01 Ml Unit) 0 unit SQ [facility]; Protocol Last Admin: 06/03/21 08:27 Dose: 6 unit Documented by: Ketorolac Tromethamine (Ketorolac 15 Mg/Ml Vial) 15 mg IV Q6HP PRN; Protocol PRN Reason: Per Pain Protocol Stop: 06/04/21 09:01 Levothyroxine Sodium (Levothyroxine 88 Mcg Tablet) 88 mcg PO ACB [facility] Last Admin: 06/03/21 07:17 Dose: 88 mcg Documented by: Lisinopril (Lisinopril 2.5 Mg Tablet) 2.5 mg PO [facility] Last Admin: 06/02/21 21:33 Dose: 2.5 mg Documented by: Magnesium Hydroxide (Magnesium Hydroxide 30 Ml Oral.Susp) 30 ml PO BIDP PRN PRN Reason: Constipation Metoclopramide HCl (Metoclopramide 10 Mg/2 Ml Vial) 10 mg IV Q6HP PRN PRN Reason: Nausea And Vomiting Morphine Sulfate (Morphine 4 Mg/Ml Vial) 0 mg IV Q3HP PRN PRN Reason: Pain Last Admin: 06/02/21 04:09 Dose: 2 mg Documented by: Ondansetron HCl (Ondansetron 4 Mg/2 Ml Vial) 4 mg IV Q4HP PRN PRN Reason: Nausea And Vomiting Polyethylene Glycol (Polyethylene Glycol 3350 17 Gm Packet) 17 gm PO DAILYP PRN PRN Reason: Constipation Potassium Chloride (Potassium Chloride 20 Meq Tablet) 40 meq PO UD PRN PRN Reason: Potssium is 3-3.5 Potassium Chloride (Potassium Chloride 20 Meq Tablet) 40 meq PO UD PRN PRN Reason: Potassium < 3 Senna (Sennosides 1 Tablet) 2 tab PO DAILYP PRN PRN Reason: Constipation Simvastatin (Simvastatin 10 Mg Tablet) 10 mg PO [facility] Last Admin: 06/02/21 21:33 Dose: 10 mg Documented by: Sodium Biphosphate/Sodium Phosphate (Fleets Adult Enema) 1 dose [place] Q3-4DAYS PRN PRN Reason: Constipation Sodium Chloride (0.9 % Sodium Chloride 10 Ml Syringe) 10 ml IV Q8 [facility] Last Admin: 06/03/21 04:48 Dose: Not Given Documented by: Throat Lozenges (Benzocaine/Menthol 1 Lozenge) 1 lozenge PO PRN PRN PRN Reason: Sore Throat A/P Narrative A/P Narrative: Assessment: 76 YO female C/O right hip pain s/p mechanical fall w/ subsequent RIGHT hip hemiarthroplasty by Dr. Reina surgeon No complaints, 10 point ROS is negative. patient seen and examined today, awake alert conversant, oriented x3 Has some expected postop pain but feels it is well managed on current regimen. Dressing at [facility], both lower extremities are warm well perfused and neuro intact. Endorses ambulation with PT and walker for assistance. Plan: patient is to be WB as tolerated and walker for assistance, Stable for discharge from ortho standpoint, will defer final dispo to attending hospitalist. follow up with [facility] in 10-14 days. Time Spent With Patient Time: Total time spent is greater than 50% in coordination of care (as documented) at patient's floor/unit and/or counseling patient:
--- NOTE | 2021-06-03 10:09 | Discharge Plan ---
DC Instructions-General Patient Instructions Dressing Care: Cover dressing in shower Discharge Plan Patient/Caregiver Discharge Instructions Activity: ambulate only with your walker and as per physical therapy Diet: Regular Diet Prescriptions: New hydrocodone-acetaminophen 10-325 mg tablet 1 tab PO Q6H PRN (Reason: pain) Qty: 60 RF: 0 methocarbamol 750 mg tablet 750 mg PO TID Qty: 20 RF: 0 Continued citalopram 40 mg tablet 40 mg PO HS RF: 0 simvastatin 10 mg tablet 10 mg PO HS RF: 0 glipizide 5 mg tablet extended release 24hr 5 mg PO QAM RF: 0 levothyroxine 88 mcg tablet 88 mcg PO QAM RF: 0 amitriptyline 10 mg tablet 10 mg PO HS RF: 0 metformin 1,000 mg tablet 1,000 mg PO QAM RF: 0 diclofenac sodium 75 mg tablet,delayed release (DR/EC) 75 mg PO QAM RF: 0 lisinopril 2.5 mg tablet 2.5 mg PO HS RF: 0 bupropion HCl 150 mg tablet extended release 24 hr 150 mg PO QAM RF: 0 Other Ambulatory Orders: Toilet Riser Discharge Order (ONCE) Location: None Selected Ordered By: Curt Barnes Follow Up Plan Follow up with: Marco Reina MD [Physician] - Abril Hutchins MD [Primary Care Provider] - Patient Disposition: Home, Self-Care Hospital Course: S/p right hip hemiarthroplasty by Dr. Reina. uneventful hospital course. Prognosis: Fair Rehab Potential: Good I certify that the patient requires SNF services: No Overall status at discharge: patient is progressing back to baseline Discharge Orders: Discharge Order (Routine); Ordered 06/03/21 Ordered By: Curt Barnes
--- NOTE | 2021-06-03 11:06 | Discharge Summary ---
Discharge Provider Provider Patient information: Note initiated : 06/03/21 at 11:05 am Service Date, if different from initiated Date: [] Patient: Jo-Ann Ho 76 y/o F admitted on 06/01/21 for Fall out of chair. Chief Complaint: [] Date of admission: 06/01/21 19:55 Discharge date: 06/05/21 Primary care physician: Abril Hutchins Consults: 06/01/21 Consult to Physician [CONS] Stat Comment: Consulting Provider: Marco Reina Reason For Exam: Physician to Consult Consult to Physician [CONS] Stat Comment: Consulting Provider: Abilio Smith Reason For Exam: Physician to Consult Discharge Meds Discharge Medications Home Medications amitriptyline 10 mg PO HS 06/02/21 [History Confirmed 06/02/21 Last Taken 05/31/21 21:00] bupropion HCl 150 mg PO QAM 06/02/21 [History Confirmed 06/02/21 Last Taken 06/01/21 09:00] citalopram 40 mg PO HS 06/02/21 [History Confirmed 06/02/21 Last Taken 05/31/21 21:00] diclofenac sodium 75 mg PO QAM 06/02/21 [History Confirmed 06/02/21 Last Taken 06/01/21 09:00] glipizide 5 mg PO QAM 06/02/21 [History Confirmed 06/02/21 Last Taken 06/01/21 09:00] levothyroxine 88 mcg PO QAM 06/02/21 [History Confirmed 06/02/21 Last Taken 06/01/21 09:00] lisinopril 2.5 mg PO HS 06/02/21 [History Confirmed 06/02/21 Last Taken 05/31/21 21:00] metformin 1,000 mg PO QAM 06/02/21 [History Confirmed 06/02/21 Last Taken 06/01/21 09:00] simvastatin 10 mg PO HS 06/02/21 [History Confirmed 06/02/21 Last Taken 05/31/21 21:00] hydrocodone-acetaminophen 1 tab PO Q6H PRN #60 tab 06/03/21 [Rx Last Taken Unknown] methocarbamol 750 mg PO TID #20 tab 06/03/21 [Rx Last Taken Unknown] enoxaparin [Lovenox] 40 mg SUBCUT QDAY #28 ml 06/05/21 [Rx Last Taken Unknown] COURSE Hospital Course Hospital course: Interval history: History of present illness: Ms. Ho is a 76 year old F Presents the ED with right hip pain. She was at [facility] and slipped out of her chair falling on her right hip. He imaging and ER shows right hip fracture. She has no chest pain shortness of breath or other complaints. Dr. Reina is contacted and perform surgery likely tomorrow. Patient states she took most of her medications already today. 06/02 Patient now status post hemiarthroplasty. Pain controlled. 06/03 Feeling well postop. Pain controlled. No acute issues. 06/04 Doing well. No overnight event or new complaints. Awaiting placement. 06/05 Discharge to SNF today. A: *Right hip fracture: s/p ORIF (06/02) *DM: *Depression/anxiety: *Hypothyroidism: Discharge diagnosis: Right hip fracture Secondary discharge diagnosis: Diabetes depression anxiety hypothyroidism Time Spent with Patient Time attestation: Total time spent providing and/or coordinating discharge services: Time spent: Greater than 30 minutes EXAM Constitutional Vitals: Temp Pulse Resp BP Pulse Ox 98.3 F 106 H 18 110/56 93 06/03/21 06:51 06/03/21 06:51 06/03/21 06:51 06/03/21 06:51 06/03/21 06:51 Discharge Plan Patient/Caregiver Discharge Instructions Activity: ambulate only with your walker and as per physical therapy Diet: Regular Diet Instructions: Hydrocodone/Acetaminophen (By mouth), Methocarbamol (By mouth), Hip Fracture (ED), Anterior Hip Replacement (DC) Activity Restrictions/Additional Instructions: May resume home diet. May resume all medications as directed. Ambulate only with a walker per physical therapy recommendations. Continue fall precautions. Your prescription is with your discharge paperwork. Some medications were electronically transmitted to [facility]. Take your prescription, insurance cards, and photo ID to package pick up your medication. You will be taking Aspirin 81 mg daily for 30 days to prevent blood clots. Pain medication can cause constipation; take an over the counter stool softener and/or laxative while on pain medication. Do the exercises at home that physical therapy gave you. Weight bearing as tolerated on operative side. Activity as tolerated. Use your ice packs in 20 minute increments as tolerated throughout the day. This and elevation will help with pain and swelling. If you have any questions or concerns call your orthopedic surgeon before going to the emergency room. [facility] has an on- call physician 24 hours per day/7 days per week and can be reached at [phone]. Call for fevers above 100.5 or pain not controlled by medication. Return to ER for fever, chills, uncontrolled pain, inability to urinate or have a bowel movement, nausea and/or vomiting, swelling, redness, signs of infection, shortness of breath, chest pain, return of symptoms, or other acute symptom. This discharge packet is provided to you to help keep you informed about your care. We want to ensure you get everything you need when you go home. You will also be receiving a call from us in a few days to follow up with you and see how you are doing since your discharge. This gives us a chance to listen to any concerns you maybe experiencing since you were discharged or any additional needs you may have, as well as providing us feedback on your care experience. We strive to always provide excellent care and thank you for your feedback and for choosing [facility]. Prescriptions: New hydrocodone-acetaminophen 10-325 mg tablet 1 tab PO Q6H PRN (Reason: pain) Qty: 60 RF: 0 methocarbamol 750 mg tablet 750 mg PO TID Qty: 20 RF: 0 enoxaparin [Lovenox] 40 mg/0.4 mL Syringe 40 mg SUBCUT QDAY Qty: 28 RF: 0 Continued citalopram 40 mg tablet 40 mg PO HS RF: 0 simvastatin 10 mg tablet 10 mg PO HS RF: 0 glipizide 5 mg tablet extended release 24hr 5 mg PO QAM RF: 0 levothyroxine 88 mcg tablet 88 mcg PO QAM RF: 0 amitriptyline 10 mg tablet 10 mg PO HS RF: 0 metformin 1,000 mg tablet 1,000 mg PO QAM RF: 0 diclofenac sodium 75 mg tablet,delayed release (DR/EC) 75 mg PO QAM RF: 0 lisinopril 2.5 mg tablet 2.5 mg PO HS RF: 0 bupropion HCl 150 mg tablet extended release 24 hr 150 mg PO QAM RF: 0 Other Ambulatory Orders: Toilet Riser Discharge Order (ONCE) Location: None Selected Ordered By: Curt Barnes Follow Up Plan Follow up with: Marco Reina MD [Physician] - Abril Hutchins MD [Primary Care Provider] - Patient Disposition: Xfer SNF Hospital Course: S/p right hip hemiarthroplasty by Dr. Reina. uneventful hospital course. Prognosis: Fair Rehab Potential: Good I certify that the patient requires SNF services: Yes Overall status at discharge: patient is progressing back to baseline Discharge Orders: Discharge Order (Routine); Ordered 06/03/21 Ordered By: Curt Barnes
[2021-06-03] MEDS: CITALOPRAM 20 MG TABLET PO SCH (21:21)
[2021-06-03] MEDS: LISINOPRIL 2.5 MG TABLET PO SCH (21:22)
[2021-06-03] MEDS: SIMVASTATIN 10 MG TABLET PO SCH (21:22)
[2021-06-03] MEDS: AMITRIPTYLINE 10 MG TABLET PO SCH (21:22)
[2021-06-04] MEDS: 0.9 % SODIUM CHLORIDE 10 ML SYRINGE IV SCH ×3 (05:27→20:35)
--- NOTE | 2021-06-04 08:12 | Internal Med Progress Note ---
SUBJECTIVE Subjective Patient information: Note initiated : 06/04/21 at 8:12 am Service Date, if different from initiated Date: [] Patient: Jo-Ann Ho a 76 y/o F admitted on 06/01/21 for Fall out of chair. Chief Complaint: [] Interval history: History of present illness: Ms. Ho is a 76 year old F Presents the ED with right hip pain. She was at [facility] and slipped out of her chair falling on her right hip. He imaging and ER shows right hip fracture. She has no chest pain shortness of breath or other complaints. Dr. Reina is contacted and perform surgery likely tomorrow. Patient states she took most of her medications already today. 06/02 Patient now status post hemiarthroplasty. Pain controlled. 06/03 Feeling well postop. Pain controlled. No acute issues. 06/04 Doing well. No overnight event or new complaints. Awaiting placement. Review of Systems: denies headache/fever/chills/nausea/vomiting/chest or abdominal pain/cough/dyspnea/diarrhea. Otherwise see above. Constitutional Vitals: Vital Signs Temp Pulse Resp BP Pulse Ox 98.1 F 106 H 14 111/60 95 06/04/21 07:57 06/04/21 07:57 06/04/21 07:57 06/04/21 07:57 06/04/21 07:57 Period Temp Pulse Resp BP Sys/Agrawal Pulse Ox Last 24 Hr 97.8 F-98.4 F 98-117 14-20 109-126/51-70 87-100 Intake and Output 06/03/21 06/04/21 06/04/21 21:59 05:59 13:59 Intake Total 200 300 Output Total 500 Balance -300 300 Weight 60.509 kg Intake & Output: Intake & Output 06/03/21 06/04/21 06/04/21 21:59 05:59 13:59 Intake Total 200 300 Output Total 500 Balance -300 300 Weight 60.509 kg Intake: Oral 200 300 Output: Urine Catheter Amount 500 Other: Meal Lunch Percent of Meal Consumed 75% Feeding Ability Assist with Tray Set Up Exam: General: Alert, Awake, No acute Distress Eyes/N/T: EOMI, Head/Neck: neck supple, CV: RRR, No murmurs, Pulm: Clear b/l, no wheezing/rhonchi/rales Abd: soft, nontender, +BS x4 Ext: no clubbing/cyanosis/edema Neuro: Alert, no focal deficits, moves all extremities, Skin: warm/dry OBJ DATA Labs CBC & Chem 7: 06/01/21 15:38 06/01/21 15:38 Labs: Abnormal Lab Results 06/02/21 06/01/21 06/01/21 06:55 15:38 15:38 WBC 11.6 H Neut % (Auto) 79.5 H Lymph % (Auto) 14.7 L Absolute Neutrophils 9.18 H Glucose 130 H ALT 41 H Urine Glucose (UA) 50 A Urine Occult Blood >=1.0 A Meds: Medications Acetaminophen (Acetaminophen 325 Mg Tablet) 650 mg PO Q6HP PRN; Protocol PRN Reason: Per Pain Protocol/Fever > 101 Last Admin: 06/03/21 07:17 Dose: 650 mg Documented by: Hydrocodone Bitart/Acetaminophen (Hydrocodone/Apap 5/325mg Tablet) 1 tab PO Q4HP PRN PRN Reason: PAIN LEVEL 3-6 Last Admin: 06/03/21 03:36 Dose: 1 tab Documented by: Albuterol/Ipratropium (Ipratropium/Albuterol 3 Ml Ampul.Neb) 3 ml NEB Q4HP PRN PRN Reason: Shortness Of Breath Amitriptyline HCl (Amitriptyline 10 Mg Tablet) 10 mg PO [facility] Last Admin: 06/03/21 21:22 Dose: 10 mg Documented by: Bisacodyl (Bisacodyl 10 Mg Supp.Rect) [address] Q2-3DAYS PRN PRN Reason: Constipation Bupropion HCl (Bupropion 150 Mg Tab.Xl.24h) 150 mg PO QAM [facility] Last Admin: 06/03/21 08:28 Dose: 150 mg Documented by: Citalopram Hydrobromide (Citalopram 20 Mg Tablet) 40 mg PO [facility] Last Admin: 06/03/21 21:21 Dose: 40 mg Documented by: Dextrose (Dextrose 50% 50 Ml Vial) 0 ml IV UD PRN PRN Reason: Hypoglycemia Diagnostic Test (Pha) (Accu-Chek 1 Each Strip) 1 each FS ACHS [facility] Last Admin: 06/04/21 08:03 Dose: 1 each Documented by: Docusate Sodium (Docusate Sodium 100 Mg Capsule) 100 mg PO BID [facility] Last Admin: 06/03/21 21:22 Dose: 100 mg Documented by: Enoxaparin Sodium (Enoxaparin 30 Mg/0.3 Ml Syringe) 30 mg SQ BID [facility] Last Admin: 06/03/21 21:21 Dose: 30 mg Documented by: Glucose (Dextrose 31 Gm Oral.Susp) 15 gm PO PRN PRN PRN Reason: Hypoglycemia Hydralazine HCl (Hydralazine 20 Mg/Ml Vial) 0 mg IV Q2HP PRN PRN Reason: Hypertension Potassium Chloride 40 meq/ (Dextrose) 520 mls @ 130 mls/hr IV UD PRN PRN Reason: Potassium < 3 Magnesium Sulfate (Magnesium Sulfate) 2 gm in 50 mls @ 50 mls/hr IV UD PRN PRN Reason: Magnesium </= 1.6 Insulin Human Lispro (Insulin Lispro 1 Unit/0.01 Ml Unit) 0 unit SQ ACHS [facility]; Protocol Last Admin: 06/03/21 21:21 Dose: 4 unit Documented by: Ketorolac Tromethamine (Ketorolac 15 Mg/Ml Vial) 15 mg IV Q6HP PRN; Protocol PRN Reason: Per Pain Protocol Stop: 06/04/21 09:01 Levothyroxine Sodium (Levothyroxine 88 Mcg Tablet) 88 mcg PO ACB [facility] Last Admin: 06/03/21 07:17 Dose: 88 mcg Documented by: Lisinopril (Lisinopril 2.5 Mg Tablet) 2.5 mg PO HS [facility] Last Admin: 06/03/21 21:22 Dose: 2.5 mg Documented by: Magnesium Hydroxide (Magnesium Hydroxide 30 Ml Oral.Susp) 30 ml PO BIDP PRN PRN Reason: Constipation Metoclopramide HCl (Metoclopramide 10 Mg/2 Ml Vial) 10 mg IV Q6HP PRN PRN Reason: Nausea And Vomiting Morphine Sulfate (Morphine 4 Mg/Ml Vial) 0 mg IV Q3HP PRN PRN Reason: Pain Last Admin: 06/02/21 04:09 Dose: 2 mg Documented by: Ondansetron HCl (Ondansetron 4 Mg/2 Ml Vial) 4 mg IV Q4HP PRN PRN Reason: Nausea And Vomiting Polyethylene Glycol (Polyethylene Glycol 3350 17 Gm Packet) 17 gm PO DAILYP PRN PRN Reason: Constipation Potassium Chloride (Potassium Chloride 20 Meq Tablet) 40 meq PO UD PRN PRN Reason: Potssium is 3-3.5 Potassium Chloride (Potassium Chloride 20 Meq Tablet) 40 meq PO UD PRN PRN Reason: Potassium < 3 Senna (Sennosides 1 Tablet) 2 tab PO DAILYP PRN PRN Reason: Constipation Simvastatin (Simvastatin 10 Mg Tablet) 10 mg PO HS [facility] Last Admin: 06/03/21 21:22 Dose: 10 mg Documented by: Sodium Biphosphate/Sodium Phosphate (Fleets Adult Enema) [address] Q3-4DAYS PRN PRN Reason: Constipation Sodium Chloride (0.9 % Sodium Chloride 10 Ml Syringe) 10 ml IV Q8 [facility] Last Admin: 06/04/21 05:27 Dose: 10 ml Documented by: Throat Lozenges (Benzocaine/Menthol 1 Lozenge) 1 lozenge PO PRN PRN PRN Reason: Sore Throat A/P Narrative A/P Narrative: A: *Right hip fracture: s/p ORIF (06/02) *DM: *Depression/anxiety: *Hypothyroidism: P: -Dr. Reina for orthopedic surgery -Pain per Ortho -Continue home psych meds -Hold home aspirin for now -SSI -PT/OT -ppx: lovenox per postop Ortho orders Time Spent With Patient Time: Total time spent is greater than 50% in coordination of care (as documented) at patient's floor/unit and/or counseling patient:
[2021-06-04] MEDS: DOCUSATE SODIUM 100 MG CAPSULE PO SCH ×2 (08:25→20:33)
[2021-06-04] MEDS: ENOXAPARIN 30 MG/0.3 ML SYRINGE SQ SCH ×2 (08:26→20:31)
[2021-06-04] MEDS: buPROPion 150 MG TAB.XL.24H PO SCH (08:26)
[2021-06-04] MEDS: INSULIN LISPRO 1 UNIT/0.01 ML UNIT SQ SCH ×4 (08:26→20:31)
[2021-06-04] MEDS: LEVOTHYROXINE 88 MCG TABLET PO SCH (08:28)
[2021-06-04] MEDS: ACETAMINOPHEN 325 MG TABLET PO PRN (12:04)
[2021-06-04] MEDS: AMITRIPTYLINE 10 MG TABLET PO SCH (20:32)
[2021-06-04] MEDS: LISINOPRIL 2.5 MG TABLET PO SCH (20:32)
[2021-06-04] MEDS: SIMVASTATIN 10 MG TABLET PO SCH (20:32)
[2021-06-04] MEDS: HYDROcodone/APAP 5/325MG TABLET PO PRN (20:32)
[2021-06-04] MEDS: CITALOPRAM 20 MG TABLET PO SCH (20:35)
[2021-06-05] MEDS: 0.9 % SODIUM CHLORIDE 10 ML SYRINGE IV SCH ×3 (04:45→20:00)
[2021-06-05] MEDS: INSULIN LISPRO 1 UNIT/0.01 ML UNIT SQ SCH ×4 (07:15→19:56)
[2021-06-05] MEDS: LEVOTHYROXINE 88 MCG TABLET PO SCH (07:15)
[2021-06-05] MEDS: buPROPion 150 MG TAB.XL.24H PO SCH (09:08)
[2021-06-05] MEDS: ENOXAPARIN 30 MG/0.3 ML SYRINGE SQ SCH ×2 (09:08→19:47)
[2021-06-05] MEDS: DOCUSATE SODIUM 100 MG CAPSULE PO SCH ×2 (09:08→19:46)
--- NOTE | 2021-06-05 17:27 | Internal Med Progress Note ---
SUBJECTIVE Subjective Patient information: Note initiated : 06/05/21 at 5:26 pm Service Date, if different from initiated Date: [] Patient: Jo-Ann Ho a 76 y/o F admitted on 06/01/21 for Fall out of chair. Chief Complaint: [fall] Interval history: History of present illness: Ms. Ho is a 76 year old F Presents the ED with right hip pain. She was at [facility] and slipped out of her chair falling on her right hip. He imaging and ER shows right hip fracture. She has no chest pain shortness of breath or other complaints. Dr. Reina is contacted and perform surgery likely tomorrow. Patient states she took most of her medications already today. 06/02 Patient now status post hemiarthroplasty. Pain controlled. 06/03 Feeling well postop. Pain controlled. No acute issues. 06/04 Doing well. No overnight event or new complaints. Awaiting placement. 06/05: Doing well. No overnight event or new complaints. Awaiting placement. Constitutional Vitals: Vital Signs Temp Pulse Resp BP Pulse Ox 37.3 C H 111 H 20 136/78 90 06/05/21 16:00 06/05/21 16:00 06/05/21 16:00 06/05/21 16:00 06/05/21 16:00 Period Temp Pulse Resp BP Sys/Agrawal Pulse Ox Last 24 Hr 36.3 C-37.3 C 81-111 18-22 108-151/63-78 90-98 Intake and Output 06/05/21 06/05/21 06/05/21 05:59 13:59 21:59 Intake Total 699 492 4870 Output Total 700 200 475 Balance -134 302 9157 Intake & Output: Intake & Output 06/05/21 06/05/21 06/05/21 05:59 13:59 21:59 Intake Total 823 647 6376 Output Total 700 200 475 Balance -303 637 9334 Intake: Oral 671 718 1584 Output: Urine Catheter Amount 700 200 Void Amount 475 Other: Meal Breakfast Lunch Percent of Meal Consumed 75% 75% Feeding Ability Assist with Tray Set Up Independent Urine Appearance Clear Clear Uretheral (Boogie) Clear Urine Color Bright Yellow Dark Yellow Straw Uretheral (Boogie) Straw Urine Odor Normal Normal Normal Uretheral (Boogie) Normal General appearance: cooperative and no acute distress Head Head exam: Present atraumatic and normocephalic Eye Eye exam: Present EOMI and PERRL ENT ENT exam: Present mucous membranes moist, normal exam and normal external ear exam Neck Neck exam: Present normal inspection; Absent lymphadenopathy, tenderness and thyromegaly Respiratory Respiratory exam: Absent accessory muscle use, respiratory distress and wheezes Cardiovascular Cardiovascular exam: Present normal rate and rhythm; Absent JVD GI/Abdominal GI/Abdominal exam: Present normal bowel sounds and soft; Absent organomegaly and tenderness Extremities Exam Extremities exam: Present full ROM, normal capillary refill and normal inspection; Absent tenderness Neurological Exam Neurological exam: Present alert, CN II-XII intact and oriented X3; Absent motor sensory deficit Psychiatric Psychiatric exam: Present normal affect and normal mood; Absent anxious and depressed Skin Skin exam: Present dry and intact OBJ DATA Labs CBC & Chem 7: 06/01/21 15:38 06/01/21 15:38 Meds: Medications Acetaminophen (Acetaminophen 325 Mg Tablet) 650 mg PO Q6HP PRN; Protocol PRN Reason: Per Pain Protocol/Fever > 101 Last Admin: 06/04/21 12:04 Dose: 650 mg Documented by: Hydrocodone Bitart/Acetaminophen (Hydrocodone/Apap 5/325mg Tablet) 1 tab PO Q4HP PRN PRN Reason: PAIN LEVEL 3-6 Last Admin: 06/04/21 20:32 Dose: 1 tab Documented by: Albuterol/Ipratropium (Ipratropium/Albuterol 3 Ml Ampul.Neb) 3 ml NEB Q4HP PRN PRN Reason: Shortness Of Breath Amitriptyline HCl (Amitriptyline 10 Mg Tablet) 10 mg PO [facility] Last Admin: 06/04/21 20:32 Dose: 10 mg Documented by: Bisacodyl (Bisacodyl 10 Mg Supp.Rect) 10 mg [place] Q2-3DAYS PRN PRN Reason: Constipation Bupropion HCl (Bupropion 150 Mg Tab.Xl.24h) 150 mg PO [facility] Last Admin: 06/05/21 09:08 Dose: 150 mg Documented by: Citalopram Hydrobromide (Citalopram 20 Mg Tablet) 40 mg PO [facility] Last Admin: 06/04/21 20:35 Dose: 40 mg Documented by: Dextrose (Dextrose 50% 50 Ml Vial) 0 ml IV UD PRN PRN Reason: Hypoglycemia Diagnostic Test (Pha) (Accu-Chek 1 Each Strip) 1 each FS [facility] Last Admin: 06/05/21 16:48 Dose: 1 each Documented by: Docusate Sodium (Docusate Sodium 100 Mg Capsule) 100 mg PO BID [facility] Last Admin: 06/05/21 09:08 Dose: 100 mg Documented by: Enoxaparin Sodium (Enoxaparin 30 Mg/0.3 Ml Syringe) 30 mg SQ BID [facility] Last Admin: 06/05/21 09:08 Dose: 30 mg Documented by: Glucose (Dextrose 31 Gm Oral.Susp) 15 gm PO PRN PRN PRN Reason: Hypoglycemia Hydralazine HCl (Hydralazine 20 Mg/Ml Vial) 0 mg IV Q2HP PRN PRN Reason: Hypertension Potassium Chloride 40 meq/ (Dextrose) 520 mls @ 130 mls/hr IV UD PRN PRN Reason: Potassium < 3 Magnesium Sulfate (Magnesium Sulfate) 2 gm in 50 mls @ 50 mls/hr IV UD PRN PRN Reason: Magnesium </= 1.6 Insulin Human Lispro (Insulin Lispro 1 Unit/0.01 Ml Unit) 0 unit SQ [facility]; Protocol Last Admin: 06/05/21 16:48 Dose: 6 unit Documented by: Levothyroxine Sodium (Levothyroxine 88 Mcg Tablet) 88 mcg PO ACB [facility] Last Admin: 06/05/21 07:15 Dose: 88 mcg Documented by: Lisinopril (Lisinopril 2.5 Mg Tablet) 2.5 mg PO [facility] Last Admin: 06/04/21 20:32 Dose: 2.5 mg Documented by: Magnesium Hydroxide (Magnesium Hydroxide 30 Ml Oral.Susp) 30 ml PO BIDP PRN PRN Reason: Constipation Metoclopramide HCl (Metoclopramide 10 Mg/2 Ml Vial) 10 mg IV Q6HP PRN PRN Reason: Nausea And Vomiting Morphine Sulfate (Morphine 4 Mg/Ml Vial) 0 mg IV Q3HP PRN PRN Reason: Pain Last Admin: 06/02/21 04:09 Dose: 2 mg Documented by: Ondansetron HCl (Ondansetron 4 Mg/2 Ml Vial) 4 mg IV Q4HP PRN PRN Reason: Nausea And Vomiting Polyethylene Glycol (Polyethylene Glycol 3350 17 Gm Packet) 17 gm PO DAILYP PRN PRN Reason: Constipation Potassium Chloride (Potassium Chloride 20 Meq Tablet) 40 meq PO UD PRN PRN Reason: Potssium is 3-3.5 Potassium Chloride (Potassium Chloride 20 Meq Tablet) 40 meq PO UD PRN PRN Reason: Potassium < 3 Senna (Sennosides 1 Tablet) 2 tab PO DAILYP PRN PRN Reason: Constipation Last Admin: 06/04/21 08:26 Dose: 2 tab Documented by: Simvastatin (Simvastatin 10 Mg Tablet) 10 mg PO HS [facility] Last Admin: 06/04/21 20:32 Dose: 10 mg Documented by: Sodium Biphosphate/Sodium Phosphate (Fleets Adult Enema) 1 dose [place] Q3-4DAYS PRN PRN Reason: Constipation Sodium Chloride (0.9 % Sodium Chloride 10 Ml Syringe) 10 ml IV Q8 [facility] Last Admin: 06/05/21 13:10 Dose: 10 ml Documented by: Throat Lozenges (Benzocaine/Menthol 1 Lozenge) 1 lozenge PO PRN PRN PRN Reason: Sore Throat A/P Assessment and plan (1) Closed displaced fracture of right femoral neck: Status: Acute Narrative A/P Narrative: A/P Narrative: A: *Right hip fracture: s/p ORIF (06/02) *DM: *Depression/anxiety: *Hypothyroidism: P: -Dr. Reina for orthopedic surgery -Pain per Ortho -Continue home psych meds -Hold home aspirin for now -SSI -PT/OT -ppx: lovenox per postop Ortho orders Time Spent With Patient Time: Total time spent is greater than 50% in coordination of care (as do cumented) at patient's floor/unit and/or counseling patient: Total time spent with greater than 50% in coordination of care (as documented) at patient's floor/unit and/or counseling patient:: 15 - 24 minutes
[2021-06-05] MEDS: CITALOPRAM 20 MG TABLET PO SCH (19:46)
[2021-06-05] MEDS: AMITRIPTYLINE 10 MG TABLET PO SCH (19:46)
[2021-06-05] MEDS: SIMVASTATIN 10 MG TABLET PO SCH (19:46)
[2021-06-05] MEDS: LISINOPRIL 2.5 MG TABLET PO SCH (19:46)
[2021-06-06] MEDS: 0.9 % SODIUM CHLORIDE 10 ML SYRINGE IV SCH (05:35)
[2021-06-06] MEDS: LEVOTHYROXINE 88 MCG TABLET PO SCH (07:32)
[2021-06-06] MEDS: INSULIN LISPRO 1 UNIT/0.01 ML UNIT SQ SCH (07:32)
[2021-06-06] MEDS: DOCUSATE SODIUM 100 MG CAPSULE PO SCH (08:23)
[2021-06-06] MEDS: buPROPion 150 MG TAB.XL.24H PO SCH (08:23)
[2021-06-06] MEDS: ACETAMINOPHEN 325 MG TABLET PO PRN (08:23)
[2021-06-06] MEDS: ENOXAPARIN 30 MG/0.3 ML SYRINGE SQ SCH (08:23)
--- NOTE | 2021-06-06 10:13 | Discharge Summary ---
Discharge Provider Provider Patient information: Note initiated : 06/06/21 at 10:12 am Service Date, if different from initiated Date: [] Patient: Jo-Ann Ho 76 y/o F admitted on 06/01/21 for Fall out of chair. Chief Complaint: [] Date of admission: 06/01/21 19:55 Discharge date: 06/06/21 Primary care physician: Abril Hutchins Consults: 06/01/21 Consult to Physician [CONS] Stat Comment: Consulting Provider: Marco Reina Reason For Exam: Physician to Consult Consult to Physician [CONS] Stat Comment: Consulting Provider: Abilio Smith Reason For Exam: Physician to Consult Discharge Meds Discharge Medications Home Medications amitriptyline 10 mg PO HS 06/02/21 [History Confirmed 06/02/21 Last Taken 05/31/21 21:00] bupropion HCl 150 mg PO QAM 06/02/21 [History Confirmed 06/02/21 Last Taken 06/01/21 09:00] citalopram 40 mg PO HS 06/02/21 [History Confirmed 06/02/21 Last Taken 05/31/21 21:00] diclofenac sodium 75 mg PO QAM 06/02/21 [History Confirmed 06/02/21 Last Taken 06/01/21 09:00] glipizide 5 mg PO QAM 06/02/21 [History Confirmed 06/02/21 Last Taken 06/01/21 09:00] levothyroxine 88 mcg PO QAM 06/02/21 [History Confirmed 06/02/21 Last Taken 06/01/21 09:00] lisinopril 2.5 mg PO HS 06/02/21 [History Confirmed 06/02/21 Last Taken 05/31/21 21:00] metformin 1,000 mg PO QAM 06/02/21 [History Confirmed 06/02/21 Last Taken 06/01/21 09:00] simvastatin 10 mg PO HS 06/02/21 [History Confirmed 06/02/21 Last Taken 05/31/21 21:00] hydrocodone-acetaminophen 1 tab PO Q6H PRN #60 tab 06/03/21 [Rx Last Taken Unknown] methocarbamol 750 mg PO TID #20 tab 06/03/21 [Rx Last Taken Unknown] enoxaparin [Lovenox] 40 mg SUBCUT QDAY #25 ml 06/05/21 [Rx Last Taken Unknown] COURSE Hospital Course Hospital course: Presents the ED with right hip pain. She was at [facility] and slipped out of her chair falling on her right hip. He imaging and ER shows right hip fracture. She has no chest pain shortness of breath or other complaints. Dr. Reina is contacted and perform surgery likely tomorrow. Patient states she took most of her medications already today. 06/02 Patient now status post hemiarthroplasty. Pain controlled. 06/03 Feeling well postop. Pain controlled. No acute issues. 06/04 Doing well. No overnight event or new complaints. Awaiting placement. 06/05 Doing well. No overnight event or new complaints. Awaiting placement. 06/06 Discharge to SNF today. Discharge diagnosis: hip fracture Time Spent with Patient Time attestation: Total time spent providing and/or coordinating discharge services: Presents the ED with right hip pain. She was at [facility] and slipped out of her chair falling on her right hip. He imaging and ER shows right hip fracture. She has no chest pain shortness of breath or other complaints. Dr. Reina is contacted and perform surgery likely tomorrow. Patient states she took most of her medications already today. 06/02 Patient now status post hemiarthroplasty. Pain controlled. 06/03 Feeling well postop. Pain controlled. No acute issues. 06/04 Doing well. No overnight event or new complaints. Awaiting placement. 06/05 Doing well. No overnight event or new complaints. Awaiting placement. 06/06 Discharge to SNF today. EXAM Constitutional Vitals: Temp Pulse Resp BP Pulse Ox 36.3 C 100 H 20 120/64 95 06/06/21 09:08 06/06/21 08:00 06/06/21 08:00 06/06/21 08:00 06/06/21 08:00 General appearance: cooperative and no acute distress Head Head exam: Present atraumatic and normocephalic Eye Eye exam: Present EOMI and PERRL ENT ENT exam: Present mucous membranes moist, normal exam and normal external ear exam Neck Neck exam: Present normal inspection; Absent lymphadenopathy, tenderness and thyromegaly Respiratory Respiratory exam: Absent accessory muscle use, respiratory distress and wheezes Cardiovascular Cardiovascular exam: Present normal rate and rhythm; Absent JVD GI/Abdominal GI/Abdominal exam: Present normal bowel sounds and soft; Absent organomegaly and tenderness Extremities Exam Extremities exam: Present full ROM, normal capillary refill and normal inspection; Absent tenderness Neurological Exam Neurological exam: Present alert, CN II-XII intact and oriented X3; Absent motor sensory deficit Psychiatric Psychiatric exam: Present normal affect and normal mood; Absent anxious and depressed Skin Skin exam: Present dry and intact Discharge Plan Patient/Caregiver Discharge Instructions Activity: ambulate only with your walker and as per physical therapy Diet: Regular Diet Instructions: Hydrocodone/Acetaminophen (By mouth), Methocarbamol (By mouth), Enoxaparin (By injection), Hip Fracture (ED), Anterior Hip Replacement (DC) Activity Restrictions/Additional Instructions: May resume home diet. Take all meals up in chair, sitting at 90 degrees, to prevent aspiration. Do the exercises at home that physical therapy gave you. Weight bearing as tolerated. Activity as tolerated. Use your ice packs as directed, on for 20 minutes at a time throughout the day. This and elevation will help with pain and swelling. Continue fall precautions. Ambulate only with a walker per physical therapy recommendations. Wear comfortable clothing for your physical therapy. Consider pre-medicating with pain medication 45 minutes prior to physical therapy appointment. You have a waterproof silver dressing covering your surgical incision. Leave in place for 10 days then remove. Remove by June 12 and remove toshia. If dressing becomes soiled (turns black), remove and use gauze 4x4 dressing and antimicrobial silver ointment ([id number]) and change daily. You may shower with dressing on,. Do not scrub dressing. Pat dry after shower. Your prescription is with your discharge paperwork. You will be taking Lovenox 40 mg daily for 25 days to prevent blood clots. Pain medication can cause constipation; take an over the counter stool softener and/or laxative while on pain medication. If you have any questions or concerns call your orthopedic surgeon before going to the emergency room. [facility] has an on- call physician 24 hours per day/7 days per week and can be reached at [phone]. Call for fevers above 100.5 or pain not controlled by medication. This discharge packet is provided to you to help keep you informed about your care. We want to ensure you get everything you need when you go home. You will also be receiving a call from us in a few days to follow up with you and see how you are doing since your discharge. This gives us a chance to listen to any concerns you maybe experiencing since you were discharged or any additional needs you may have, as well as providing us feedback on your care experience. We strive to always provide excellent care and thank you for your feedback and for choosing [facility]. Prescriptions: New hydrocodone-acetaminophen 10-325 mg tablet 1 tab PO Q6H PRN (Reason: pain) Qty: 60 RF: 0 methocarbamol 750 mg tablet 750 mg PO TID Qty: 20 RF: 0 enoxaparin [Lovenox] 40 mg/0.4 mL Syringe 40 mg SUBCUT QDAY Qty: 25 RF: 0 Continued citalopram 40 mg tablet 40 mg PO HS RF: 0 simvastatin 10 mg tablet 10 mg PO HS RF: 0 glipizide 5 mg tablet extended release 24hr 5 mg PO QAM RF: 0 levothyroxine 88 mcg tablet 88 mcg PO QAM RF: 0 amitriptyline 10 mg tablet 10 mg PO HS RF: 0 metformin 1,000 mg tablet 1,000 mg PO QAM RF: 0 diclofenac sodium 75 mg tablet,delayed release (DR/EC) 75 mg PO QAM RF: 0 lisinopril 2.5 mg tablet 2.5 mg PO HS RF: 0 bupropion HCl 150 mg tablet extended release 24 hr 150 mg PO QAM RF: 0 Other Ambulatory Orders: OT Discharge Order (Routine) Location: None Selected Ordered By: Marco Reina Physical Therapy at Discharge - General (Routine) Location: None Selected Ordered By: Marco Reina Toilet Riser Discharge Order (ONCE) Location: None Selected Ordered By: Curt Lee (ONCE) Location: None Selected Ordered By: Marco Reina Follow Up Plan Follow up with: Marco Reina MD [Physician] - (Please schedule follow-up appointment in [address] Reina) Abril Hutchins MD [Primary Care Provider] - (Please call office to schedule follow-up appointment within 7-10 days.) Patient Disposition: [facility] Hospital Course: S/p right hip hemiarthroplasty by Dr. Reina. uneventful hospital course. Prognosis: Fair Rehab Potential: Good I certify that the patient requires SNF services: Yes Overall status at discharge: patient is progressing back to baseline Discharge Orders: Discharge Order (Routine); Ordered 06/05/21 Ordered By: Abilio Smith
== END 2021-06-06 10:43 | DRG 522 ==
LOC: ED 14:49 → MEDSUR 19:55
PROVIDERS: ADMIT Internal Medicine; ATTEND Internal Medicine

== ENCOUNTER 2022-08-30 14:06 | Inpatient (IN) ==
--- NOTE | 2022-08-30 14:12 | Emergency Department Note ---
Lower Extremity Injury HPI General Chief Complaint: Extremity Injury, Lower Stated Complaint: Left hip pain Time Seen by Provider: 08/30/22 14:10 Mode of arrival: EMS Limitations: no limitations History of Present Illness HPI Narrative: Narrative: Patient presents to the emergency department by EMS with complaint of left hip pain. She had a fall at home when she stood up she turned her left foot inward and somehow lost her balance fell to the left side landing on the carpeted floor. She was not able to get up immediately on her own but they did call EMS immediately and she is on the ground she estimates about 10 minutes total time. She denies any recent fever, chills, cough, nausea, vomiting, chest pain, shortness of breath, abdominal pain, dysuria or increased urinary frequency, diarrhea or stool changes. She is otherwise at her baseline state of health. She is very pleasant and interactive 77-year-old female. Related Data Home Medications Medication Instructions Recorded Confirmed amitriptyline 10 mg tablet 10 mg PO HS 06/02/21 12/13/21 bupropion HCl 150 mg 24 hr tablet, 150 mg PO QAM 06/02/21 12/13/21 extended release diclofenac sodium 75 mg 75 mg PO QAM 06/02/21 12/13/21 tablet,delayed release glipizide 5 mg tablet, extended 5 mg PO QAM 06/02/21 12/13/21 release 24 hr levothyroxine 88 mcg tablet 88 mcg PO QAM 06/02/21 12/13/21 lisinopril 2.5 mg tablet 2.5 mg PO HS 06/02/21 12/13/21 metformin 1,000 mg tablet 1,000 mg PO QAM 06/02/21 12/13/21 simvastatin 10 mg tablet 10 mg PO HS 06/02/21 12/13/21 Allergies Allergy/AdvReac Type Severity Reaction Status Date / Time codeine Allergy Unknown Unknown Verified 08/30/22 14:12 Review of Systems ROS ROS Narrative: Narrative: Please see pertinent positives and negatives in HPI. All systems ED: reviewed and negative except as stated. PFSH Narrative Patient History Narrative: Narrative: Medical/Surgical/Family History All Active Problems (Updated 08/30/22 @ 17:15 by Minal Leal DO) Closed fracture of left hip (Acute) Fall from ground level (Acute) Hyperglycemia (Acute) History of non-insulin dependent type 2 diabetes mellitus (Acute) Radiculopathy, thoracic region (Acute) Radiculopathy of thoracolumbar region (Acute) Thoracic back pain (Chronic) Other low back pain (Chronic) Chronic pain (Chronic) Frequent headaches (Chronic) terminal superintendent (current) use of aspirin (Chronic) CHCF (current) use of non-steroidal anti-inflammatories (nsaid) (Chronic) Skin cancer (Chronic) 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) Head injury (Chronic) Dermatofibroma of left lower leg (Chronic) Hallux valgus (acquired) (Chronic) Anxiety (Chronic) Unsteady gait when walking (Chronic) Osteoporosis (Chronic) Bilateral shoulder pain (Chronic) Angioma (Chronic) Melanocytic nevus of face (Chronic) Lentigines (Chronic) Purpura (Chronic) Keloid scar (Chronic) Mixed hyperlipidemia (Chronic) Hypothyroidism (Chronic) Hypertension (Chronic) Diabetes mellitus, type II (Chronic) Repeated falls (Chronic) Depression (Chronic) Wedge compression fracture of T11-T12 vertebra, initial encounter for closed fracture (Chronic) Compression fracture (Chronic) Closed displaced fracture of right femoral neck (Chronic) Medical History Angioma Anxiety Bilateral shoulder pain Chondrodermatitis nodularis helicis of left ear Chronic pain Closed displaced fracture of right femoral neck Compression fracture Depression Dermatofibroma of left lower leg Diabetes mellitus, type II Frequent headaches Hallux valgus (acquired) Head injury History of trigger finger Hypertension Hypothyroidism Keloid scar Lentigines CHCF (current) use of aspirin CHCF (current) use of non-steroidal anti-inflammatories (nsaid) Melanocytic nevus of face Mixed hyperlipidemia Osteoporosis Other low back pain Purpura Radiculopathy, thoracic region Repeated falls Skin cancer Thoracic back pain Unsteady gait when walking Wedge compression fracture of T11-T12 vertebra, initial encounter for closed fracture Surgical History History of appendectomy History of cataract extraction (~2017) History of cholecystectomy (~1983) History of hip surgery 2020-right hip History of squamous cell carcinoma excision Hx of breast reduction, elective Family History Mother Heart attack Father COPD (chronic obstructive pulmonary disease) Bone cancer Social History Smoking Status: Never smoker Alcohol Intake Frequency: does not drink Substance Use: does not use Exam Narrative Narrative: Narrative: General Limitations: no limitations General appearance: Present alert, in no apparent distress and nontoxic Head Head: Present atraumatic, normocephalic and normal inspection Eye Eye: Present normal appearance and EOMI; Absent scleral icterus or conjunctival injection ENT ENT: Present normal exam and mucous membranes moist Neck Neck: Present normal inspection, full ROM and trachea midline Chest Chest: Present normal inspection and symmetric chest wall rise Respiratory Respiratory: Present normal lung sounds bilaterally; Absent respiratory distress Cardiovascular Cardiovascular: Present regular rate (Borderline tachycardic.), normal rhythm and normal heart sounds Adbominal Abdominal: Present soft and normal bowel sounds; Absent distention, tenderness, guarding or rebound Rectal Rectal: Present deferred Bimanual: Present other (Deferred.) Extremities Extremities: Present tenderness (Over greater trochanter left hip.) and other (Patient's left foot is shortened with little of external rotation of the hip and slight flexion at the knee and position of comfort.); Absent full ROM, pedal edema, pretibial edema or cyanosis Neurological Neurological: Present alert, oriented X3 and CN II-XII intact; Absent motor sensory deficit Psychiatric Psychiatric: Present normal affect, normal mood, polite and pleasant Skin Skin: Present warm (WNL), dry and normal color Course Reevaluation(s) Reevaluation #1: Reevaluated, stable. Patient states that her pain started a little worse and requesting more pain medication. I did advise her of her fracture and we will try to get her admitted to get that fixed for her. I did also tell her that I still have a few labs I am waiting for him with those labs return I will speak with Dr. Polk, the orthopedist on-call. They are agreeable with this. They originally requested Dr. Reina but to they are comfortable with Dr. Polk as well. Time: 15:39 Consultations Consultation #1: Spoke with Dr. Polk, on-call orthopedist, he will come see the patient in [facility] ED and asked that we admit to the hospitalist. Time: 16:13 Consultation #2: Spoke with Dr. Smith, Hospitalist, he accepts patient for admission and medical management. He will come down and see her in the emergency department. Time: 17:08 Vital Signs Vital signs: Vital Signs Temperature 97.3 F 08/30/22 14:09 Pulse Rate 97 H 08/30/22 14:09 Respiratory Rate 16 08/30/22 14:09 Blood Pressure 160/88 08/30/22 14:09 Pulse Oximetry (%) 91 08/30/22 14:09 Oxygen Delivery Method 08/30/22 14:09 Temperature 97.3 F 08/30/22 14:09 Pulse Rate 91 H 08/30/22 16:01 Respiratory Rate 22 08/30/22 16:31 Blood Pressure 130/71 08/30/22 16:31 Pulse Oximetry (%) 98 08/30/22 16:31 Oxygen Delivery Method 08/30/22 14:09 MDM MDM Narrative Medical decision making narrative: Narrative: Patient presents emerged department with complaint of fall and left hip pain. Imaging does reveal that she has a left cervical hip fracture. Please see radiology report for full details. Patient is at her baseline normal state health otherwise. She does have history of type 2 diabetes mellitus and her glucose is elevated. She takes oral medications only. She is best served by hospitalization and surgical pair of her hip. I did speak with Dr. Polk, orthopedic surgeon on-call, he agrees to consult on the patient. I also spoke with Dr. Smith, hospitalist on-call, who agrees to admit the patient to his service. Sepsis Sepsis Identified: No Differential Diagnosis Differential Diagnosis: Hip fracture, pelvic fracture, metabolic abnormality, electrolyte abnormali Medical Records Medical records reviewed: Yes I reviewed the patient's medical records. Lab Data Lab results reviewed: Yes I reviewed the patient's lab results. Result diagrams: 08/30/22 14:39 Labs: Lab Results 08/30/22 08/30/22 08/30/22 Range/Units 14:38 14:39 14:40 WBC 6.5 (4.5-11.0) K/mcL RBC 4.27 (3.59-5.38) M/mcL Hgb 12.9 (11.2-15.7) g/dL Hct 39.5 (34.1-44.9) % POC Hct 41.0 (36-48) MCV 92.5 (80.0-100.0) fL MCH 30.2 (26.0-34.0) pg MCHC 32.7 (31.0-36.0) g/dL RDW 13.2 (11.5-14.5) % Plt Count 229 (140-440) K/mcL MPV 10.6 (8.8-12.5) fL Immature Gran % (Auto) 0.6 H (0.0-0.5) % Neut % (Auto) 61.6 (38.0-78.0) % Lymph % (Auto) 28.8 (15.5-49.0) % [place] % (Auto) 6.2 (1.0-12.0) % Eos % (Auto) 2.2 (0.0-7.0) % Baso % (Auto) 0.6 (0.0-2.0) % Lymph # (Auto) 1.87 (1.50-4.80) K/mcL [place] # (Auto) 0.40 (0.10-0.90) K/mcL Eos # (Auto) 0.14 (0.00-0.70) K/mcL Baso # (Auto) 0.04 (0.00-0.30) K/mcL Immature Gran # 0.04 (0.00-0.05) K/mcl Absolute Neutrophils 4.01 (1.80-8.00) K/mcL POC Sodium 138 (133-145) POC Potassium 4.1 (3.3-5.1) POC Chloride 101 (96-108) POC Total CO2 27.0 (22-30) POC BUN 13 (6-20) POC Creatinine 0.6 (0.6-1.2) POC Glucose 213 H (70-105) POC WB Ioniz Calcium 1.26 (1.16-1.32) Total Bilirubin 0.2 (0.1-1.0) mg/dL Direct Bilirubin < 0.2 (0-0.3) mg/dL AST 21 (<32) U/L ALT 29 (<40) U/L Alkaline Phosphatase 51 (39-117) U/L Total Creatine Kinase 35 (24-170) U/L CK-MB (CK-2) 1.6 (<3.7) ng/mL Total Protein 6.5 (5.9-8.4) gm/dL Albumin 4.2 (3.2-5.2) gm/dL Globulin 2.3 (2.2-3.7) gm/dL POC Troponin I (0.00-0.08) 08/30/22 Range/Units 14:43 WBC (4.5-11.0) K/mcL RBC (3.59-5.38) M/mcL Hgb (11.2-15.7) g/dL Hct (34.1-44.9) % POC Hct (36-48) MCV (80.0-100.0) fL MCH (26.0-34.0) pg MCHC (31.0-36.0) g/dL RDW (11.5-14.5) % Plt Count (140-440) K/mcL MPV (8.8-12.5) fL Immature Gran % (Auto) (0.0-0.5) % Neut % (Auto) (38.0-78.0) % Lymph % (Auto) (15.5-49.0) % [place] % (Auto) (1.0-12.0) % Eos % (Auto) (0.0-7.0) % Baso % (Auto) (0.0-2.0) % Lymph # (Auto) (1.50-4.80) K/mcL [place] # (Auto) (0.10-0.90) K/mcL Eos # (Auto) (0.00-0.70) K/mcL Baso # (Auto) (0.00-0.30) K/mcL Immature Gran # (0.00-0.05) K/mcl Absolute Neutrophils (1.80-8.00) K/mcL POC Sodium (133-145) POC Potassium (3.3-5.1) POC Chloride (96-108) POC Total CO2 (22-30) POC BUN (6-20) POC Creatinine (0.6-1.2) POC Glucose (70-105) POC WB Ioniz Calcium (1.16-1.32) Total Bilirubin (0.1-1.0) mg/dL Direct Bilirubin (0-0.3) mg/dL AST (<32) U/L ALT (<40) U/L Alkaline Phosphatase (39-117) U/L Total Creatine Kinase (24-170) U/L CK-MB (CK-2) (<3.7) ng/mL Total Protein (5.9-8.4) gm/dL Albumin (3.2-5.2) gm/dL Globulin (2.2-3.7) gm/dL POC Troponin I < 0.02 (0.00-0.08) Radiology Data Radiology results reviewed: Yes I reviewed the patient's radiology results. Radiology results narrative: Plain films of the left hip do show a cervical neck hip fracture. Please see radiology report for full details. Plain film of the chest AP portable is unremarkable, no acute process. EKG Data EKG #1: EKG attestation: Yes I reviewed and interpreted this EKG. and Yes There are no EKG findings of acute coronary syndrome EKG results narrative: EKG obtained this date at 1432 hrs. interpreted by myself at 1436 hrs. reveals sinus rhythm with a rate of 94 bpm. Left axis deviation. Intervals show DC interval prolonged 216 ms consistent with first-degree AV block. Remainder of intervals within normal limits. There is abnormal R wave progression late transition noted. Q waves are present in lead III and aVF suggesting old i nferior infarct. I do not see any acute ST elevation or or ST depression or T wave changes to suggest acute ischemia or infarct. No STEMI. Discharge Plan Patient/Caregiver Discharge Instructions Pt seen by JOURNALISM INSTRUCTOR/PA only: No Clinical Impression: Closed fracture of left hip, Fall from ground level, Hyperglycemia, History of non-insulin dependent type 2 diabetes mellitus Patient Disposition: Xfer As Inpt ([facility]) Follow up with: Abril Hutchins MD [Primary Care Provider] - Prescriptions: No Action simvastatin 10 mg tablet 10 mg PO HS glipizide 5 mg tablet extended release 24hr 5 mg PO QAM levothyroxine 88 mcg tablet 88 mcg PO QAM amitriptyline 10 mg tablet 10 mg PO HS metformin 1,000 mg tablet 1,000 mg PO QAM diclofenac sodium 75 mg tablet,delayed release (DR/EC) 75 mg PO QAM lisinopril 2.5 mg tablet 2.5 mg PO HS bupropion HCl 150 mg tablet extended release 24 hr 150 mg PO QAM
[2022-08-30] MEDS ORDERED: ONDANSETRON 4 MG/2 ML VIAL IV ONE (14:34)
[2022-08-30] MEDS: fentaNYL 100 MCG/2 ML VIAL IV PRN ×2 (14:46→15:45)
--- NOTE | 2022-08-30 14:47 | XRay Report ---
CLINICAL INFORMATION: Trauma COMPARISON: 06/15/2021 FINDINGS: Comminuted transcervical fracture of the left hip resulting in moderate coxa vara angulation. Distal fragment is displaced 1 cm superiorly. Right hip prostheses remains anatomically aligned without loosening or infection. There is heterotopic ossification over the superior right capsule. Left hip is normal in width and alignment. SI joints are normal. There is soft tissue swelling over the fracture site. IMPRESSION: Displaced transcervical fracture of the left hip. Interpreted and Authenticated by: Dhaval Tineo 08/30/22
--- NOTE | 2022-08-30 14:52 | XRay Report ---
CLINICAL INFORMATION: Preop hip surgery COMPARISON: 06/01/2021 TECHNIQUE: Portable FINDINGS: The heart size, mediastinum and pulmonary vessels are unremarkable. The lungs are clear. There are no effusions. The bones and soft tissues are within normal limits. IMPRESSION: Normal chest. Interpreted and Authenticated by: Dhaval Tineo 08/30/22
[2022-08-30 14:57] LABS: POC Calcium, Ionized 1.26 (1.16-1.32); POC Creatinine 0.6 (0.6-1.2); POC Potassium 4.1 (3.3-5.1)
[2022-08-30 15:28] LABS: Basophils # (Auto) 0.04 K/mcL (0.00-0.30); Basophils % (Auto) 0.6 % (0.0-2.0); Eosinophils # (Auto) 0.14 K/mcL (0.00-0.70); Eosinophils % (Auto) 2.2 % (0.0-7.0); Hematocrit 39.5 % (34.1-44.9); Hemoglobin 12.9 g/dL (11.2-15.7); Lymphocytes # (Auto) 1.87 K/mcL (1.50-4.80); Lymphocytes % (Auto) 28.8 % (15.5-49.0); Mean Cell Volume 92.5 fL (80.0-100.0); Mean Corpuscular HGB Conc 32.7 g/dL (31.0-36.0); Mean Platelet Volume 10.6 fL (8.8-12.5); Monocytes % (Auto) 6.2 % (1.0-12.0); Neutrophils % (Auto) 61.6 % (38.0-78.0); Platelet Count 229 K/mcL (140-440); RBC 4.27 M/mcL (3.59-5.38); Red Cell Distribution Width 13.2 % (11.5-14.5); WBC 6.5 K/mcL (4.5-11.0)
[2022-08-30 15:29] LABS: Creatine Kinase 35 U/L (24-170); Creatine Kinase MB 1.6 ng/mL (<3.7)
[2022-08-30 15:42] LABS: ALT/SGPT 29 U/L (<40); AST/SGOT 21 U/L (<32); Albumin 4.2 gm/dL (3.2-5.2); Alkaline Phosphatase 51 U/L (39-117); Bilirubin,Direct < 0.2 mg/dL (0-0.3); Bilirubin,Total 0.2 mg/dL (0.1-1.0); Globulin 2.3 gm/dL (2.2-3.7)
--- NOTE | 2022-08-30 17:11 | Internal Med History&Physical ---
HPI History of Present Illness Patient information: Note initiated : 08/30/22 at 4:34 pm Service Date, if different from initiated Date: [] Patient: Jo-Ann Ho a 77 y/o F admitted on for Left hip pain. Chief Complaint: [] History of present illness: Ms. Ho is a 77 year old F Presents to the ED after fall due to tripping onto her left hip. Patient states she was getting up from her recliner and she tripped on her shoes. She had immediate pain when she fell to the ground on her left side. Work-up in the ED revealed left hip fracture. Dr. Polk was contacted from the ED. Patient denies any recent illnesses. No chest pain shortness of breath. Patient has a history of diabetes hypertension hypothyroidism depression anxiety hyperlipidemia. EKG normal sinus rhythm. Review of Systems: Pertinent positives as above. Denies headache/fever/chills/nausea/vomiting/chest or abdominal pain/cough/dyspnea/diarrhea. Remaining 10 point review of system reviewed negative PFSH PFSH All Active Problems (Updated 08/30/22 @ 17:15 by Minal Leal DO) Closed fracture of left hip (Acute) Fall from ground level (Acute) Hyperglycemia (Acute) History of non-insulin dependent type 2 diabetes mellitus (Acute) Radiculopathy, thoracic region (Acute) Radiculopathy of thoracolumbar region (Acute) Thoracic back pain (Chronic) Other low back pain (Chronic) Chronic pain (Chronic) Frequent headaches (Chronic) penitentiary (current) use of aspirin (Chronic) penitentiary (current) use of non-steroidal anti-inflammatories (nsaid) (Chronic) Skin cancer (Chronic) 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) Head injury (Chronic) Dermatofibroma of left lower leg (Chronic) Hallux valgus (acquired) (Chronic) Anxiety (Chronic) Unsteady gait when walking (Chronic) Osteoporosis (Chronic) Bilateral shoulder pain (Chronic) Angioma (Chronic) Melanocytic nevus of face (Chronic) Lentigines (Chronic) Purpura (Chronic) Keloid scar (Chronic) Mixed hyperlipidemia (Chronic) Hypothyroidism (Chronic) Hypertension (Chronic) Diabetes mellitus, type II (Chronic) Repeated falls (Chronic) Depression (Chronic) Wedge compression fracture of T11-T12 vertebra, initial encounter for closed fracture (Chronic) Compression fracture (Chronic) Closed displaced fracture of right femoral neck (Chronic) Medical History Angioma Anxiety Bilateral shoulder pain Chondrodermatitis nodularis helicis of left ear Chronic pain Closed displaced fracture of right femoral neck Compression fracture Depression Dermatofibroma of left lower leg Diabetes mellitus, type II Frequent headaches Hallux valgus (acquired) Head injury History of trigger finger Hypertension Hypothyroidism Keloid scar Lentigines penitentiary (current) use of aspirin penitentiary (current) use of non-steroidal anti-inflammatories (nsaid) Melanocytic nevus of face Mixed hyperlipidemia Osteoporosis Other low back pain Purpura Radiculopathy, thoracic region Repeated falls Skin cancer Thoracic back pain Unsteady gait when walking Wedge compression fracture of T11-T12 vertebra, initial encounter for closed f racture Surgical History History of appendectomy History of cataract extraction (~2017) History of cholecystectomy (~1983) History of hip surgery 2020-right hip History of squamous cell carcinoma excision Hx of breast reduction, elective Family History Mother Heart attack Father COPD (chronic obstructive pulmonary disease) Bone cancer Social History (Updated 12/11/21 @ 06:47 by Sophy Doshi) marital status: education level: college occupational status: retired occupation: teacher physical activity: walking frequency: 3-4 times per week smoking status: Never smoker alcohol intake frequency: does not drink substance use type: does not use MEDS/ALLERGIES Home Medications and Allergies Home Medications Medication Instructions Recorded Confirmed Type amitriptyline 10 mg tablet 10 mg PO HS 06/02/21 12/13/21 History bupropion HCl 150 mg 24 hr tablet, 150 mg PO QAM 06/02/21 12/13/21 History extended release diclofenac sodium 75 mg 75 mg PO QAM 06/02/21 12/13/21 History tablet,delayed release glipizide 5 mg tablet, extended 5 mg PO QAM 06/02/21 12/13/21 History release 24 hr levothyroxine 88 mcg tablet 88 mcg PO QAM 06/02/21 12/13/21 History lisinopril 2.5 mg tablet 2.5 mg PO HS 06/02/21 12/13/21 History metformin 1,000 mg tablet 1,000 mg PO QAM 06/02/21 12/13/21 History simvastatin 10 mg tablet 10 mg PO HS 06/02/21 12/13/21 History Allergies Allergy/AdvReac Type Severity Reaction Status Date / Time codeine Allergy Unknown Unknown Verified 08/30/22 14:12 EXAM Constitutional Vitals: Temp Pulse Resp BP Pulse Ox O2 Del Method 97.3 F 91 H 10 L 137/79 96 08/30/22 14:09 08/30/22 16:01 08/30/22 16:01 08/30/22 16:01 08/30/22 16:01 08/30/22 14:09 Exam: General: Alert, Awake, No acute Distress Eyes/N/T: EOMI, PERRL, dry MM Head/Neck: neck supple, normocephalic atraumatic CV: RRR, No murmurs, normal s1/s2 Pulm: Clear b/l, no wheezing/rhonchi/rales Abd: soft, nontender, +BS x4 Ext: no clubbing/cyanosis/edema Neuro: Alert, no focal deficits, moves all extremities, CN 2-12 grossly intact, sensations intact b/l upper/lower Skin: warm/dry DATA Data Completed and Pending Labs: Labs from last 24 hours 08/30/22 08/30/22 08/30/22 14:43 14:40 14:39 WBC 6.5 RBC 4.27 Hgb 12.9 Hct 39.5 POC Hct 41.0 MCV 92.5 MCH 30.2 MCHC 32.7 RDW 13.2 Plt Count 229 MPV 10.6 Immature Gran % (Auto) 0.6 H Neut % (Auto) 61.6 Lymph % (Auto) 28.8 Mccormick % (Auto) 6.2 Eos % (Auto) 2.2 Baso % (Auto) 0.6 Lymph # (Auto) 1.87 Mccormick # (Auto) 0.40 Eos # (Auto) 0.14 Baso # (Auto) 0.04 Immature Gran # 0.04 Absolute Neutrophils 4.01 POC Sodium 138 POC Potassium 4.1 POC Chloride 101 POC Total CO2 27.0 POC BUN 13 POC Creatinine 0.6 POC Glucose 213 H POC WB Ioniz Calcium 1.26 Total Bilirubin Direct Bilirubin AST ALT Alkaline Phosphatase Total Creatine Kinase CK-MB (CK-2) Total Protein Albumin Globulin POC Troponin I < 0.02 08/30/22 14:38 WBC RBC Hgb Hct POC Hct MCV MCH MCHC RDW Plt Count MPV Immature Gran % (Auto) Neut % (Auto) Lymph % (Auto) Mccormick % (Auto) Eos % (Auto) Baso % (Auto) Lymph # (Auto) Mccormick # (Auto) Eos # (Auto) Baso # (Auto) Immature Gran # Absolute Neutrophils POC Sodium POC Potassium POC Chloride POC Total CO2 POC BUN POC Creatinine POC Glucose POC WB Ioniz Calcium Total Bilirubin 0.2 Direct Bilirubin < 0.2 AST 21 ALT 29 Alkaline Phosphatase 51 Total Creatine Kinase 35 CK-MB (CK-2) 1.6 Total Protein 6.5 Albumin 4.2 Globulin 2.3 POC Troponin I A/P Narrative A/P Narrative: A: *Left hip fracture: *DM2: *HTN/HLD: *Depression/anxiety: *Hypothyroidism: cont synthroid P: -Dr. Polk for orthopedic surgery -Pain control -ekg/ua - -Home medication reconciliation -SSI -Continue home statin, cont ACEI -Continue home psych medications -PT/OT -CM for placement -ppx: SCD and postop per Ortho Time Spent With Patient Time: Total time spent is greater than 50% in coordination of care (as documented) at patient's floor/unit and/or counseling patient: Initial: Total time with patient: 55 - 74 minutes
[2022-08-30] MEDS ORDERED: ceFAZolin 2 GM in DEXTROSE 5% IN WATER 50 ML IV SCH ×2 (18:15→20:45)
[2022-08-30] MEDS ORDERED: ceFAZolin 2 GM in DEXTROSE 5% IN WATER 50 ML IV ONE (18:22)
[2022-08-30] MEDS ORDERED: MAGNESIUM SULFATE 2 GM/50 ML BAG IV ONE (19:00)
[2022-08-30] MEDS ORDERED: ONDANSETRON 4 MG/2 ML VIAL ONE (19:00)
[2022-08-30] MEDS ORDERED: ROPIVACAINE HCL/PF 20 ML VIAL IJ ONE (19:00)
[2022-08-30] MEDS ORDERED: GLYCOPYRROLATE 0.2 MG/ML VIAL IV ONE (19:00)
[2022-08-30] MEDS ORDERED: fentaNYL 100 MCG/2 ML VIAL IV ONE (19:00)
[2022-08-30] MEDS ORDERED: PROPOFOL 200 MG/20 ML VIAL IV ONE (19:00)
[2022-08-30] MEDS ORDERED: KETAMINE 50 MG/ML Syringe (ANEST) IV ONE (19:00)
[2022-08-30] MEDS ORDERED: ePHEDrine 50 MG/5 ML SYRINGE (ANEST) IV ONE (19:00)
[2022-08-30] MEDS ORDERED: DEXAMETHASONE 10 MG/ML VIAL ONE (19:00)
[2022-08-30] MEDS ORDERED: PHENYLephrine 1 MG/10 ML SYRINGE (ANEST) ONE (19:00)
[2022-08-30] MEDS ORDERED: LIDOCAINE HCL/PF 100 MG/5 ML SYRINGE IV ONE (19:00)
[2022-08-30 19:05] LABS: INR 0.9 (0.9-1.1); Prothrombin Time 12.7 sec (11.9-14.5)
[2022-08-30] MEDS ORDERED: fentaNYL 100 MCG/2 ML VIAL IV PRN (19:59)
[2022-08-30] MEDS ORDERED: LABETALOL 5 MG/ML ML IV PRN (19:59)
[2022-08-30] MEDS ORDERED: IPRATROPIUM/ALBUTEROL 3 ML AMPUL.NEB NEB PRN ×2 (19:59→22:16)
[2022-08-30] MEDS ORDERED: LACTATED RINGERS 250 ML IV PRN (19:59)
[2022-08-30] MEDS ORDERED: METHOCARBAMOL 1,000 MG/10 ML VIAL IV PRN (19:59)
[2022-08-30] MEDS ORDERED: MEPERIDINE 25 MG/ML VIAL IV PRN (19:59)
[2022-08-30] MEDS ORDERED: ACETAMINOPHEN 1,000 MG/100 ML BAG IV ONE (19:59)
[2022-08-30] MEDS ORDERED: ONDANSETRON 4 MG/2 ML VIAL IV PRN ×2 (19:59→22:16)
[2022-08-30] MEDS ORDERED: NALOXONE HCL 0.4 MG/ML VIAL IV PRN (19:59)
[2022-08-30] MEDS ORDERED: LACTATED RINGERS 1,000 ML IV SCH (20:00)
[2022-08-30] MEDS ORDERED: POLYETHYLENE GLYCOL 3350 17 GM PACKET PO PRN ×2 (20:35→22:16)
[2022-08-30] MEDS ORDERED: FLEETS ADULT ENEMA PR PRN (20:35)
[2022-08-30] MEDS ORDERED: morphine 4 MG/ML VIAL IV PRN ×2 (20:35→22:16)
[2022-08-30] MEDS ORDERED: BISACODYL 10 MG SUPP.RECT PR PRN (20:35)
[2022-08-30] MEDS ORDERED: MAGNESIUM HYDROXIDE 30 ML ORAL.SUSP PO PRN (20:35)
[2022-08-30] MEDS ORDERED: HYDROcodone/APAP 5/325MG TABLET PO PRN ×2 (20:35→22:16)
--- NOTE | 2022-08-30 20:35 | Brief Operative Note ---
Brief Operative Note Date of procedure: 09/13/22 Pre-op diagnosis: left hip fracture Post-op diagnosis: same Procedure: hemiarthorplasty Grafts/Implants: Yes Anesthesia: GETA, spinal and GLMA Findings: fracture Complications: none Surgeon: Gulshan Polk [employer] Officer: Pedro Winn Estimated blood loss (cc): 150 Specimens Removed/Pathology: none sent Condition: stable Disposition: PACU
[2022-08-30] MEDS ORDERED: 0.45 % SODIUM CHLORIDE 1,000 ML IV SCH (20:45)
[2022-08-30] MEDS ORDERED: METHOCARBAMOL 1,000 MG/10 ML VIAL ONE (20:47)
--- NOTE | 2022-08-30 20:55 | History and Physical Report ---
DATE OF ADMISSION: 08/30/2022 IDENTIFICATION: Ms. Ho is a 77-year-old female. CHIEF COMPLAINT: Left hip fracture. HISTORY OF PRESENT ILLNESS: Ms. Ho sustained a ground level fall today when she tripped on her shoes, had immediate pain, was unable to bear weight, presented to the emergency room where I was called for further evaluation. PAST MEDICAL HISTORY: Diabetes, hypertension, hypothyroidism, anxiety, and hyperlipidemia. PAST SURGICAL HISTORY: She has had a previous right hemiarthroplasty done a year ago. MEDICATIONS: Include, 1. Amitriptyline. 2. Bupropion. 3. Diclofenac. 4. Glipizide. 5. Thyroid. 6. Lisinopril. 7. Metformin. 8. Simvastatin. ALLERGIES: SHE LISTS CODEINE. PHYSICAL EXAMINATION: GENERAL: She is awake and alert. She is resting comfortably. HEENT: Her head is normocephalic, atraumatic. Eyes: PERRLA. Conjunctivae clear. ENT within normal limits. NECK: Supple, without pain on range of motion. HEART: Regular. LUNGS: Clear. ABDOMEN: Benign. MUSCULOSKELETAL: Her hip is carefully positioned. It is shortened. It is malrotated. Shows marked pain with any range of motion. She is without focal neurovascular deficit. RADIOGRAPHS: Demonstrate a subcapital femoral neck fracture. IMPRESSION: Femoral neck fracture. PLAN: We will proceed with a hemiarthroplasty. Surgical risks, complications, and limitations have been discussed. The patient wishes to proceed. She does have a right-sided surgery done with an anterior approach. We will perform similar sort of surgery for the patient to try and keep this as symmetrical as possible. GDD:aleja Job ID: [id number] Doc ID: [id number] Gulshan Polk MD
[2022-08-30] MEDS: 0.9 % SODIUM CHLORIDE 10 ML SYRINGE IV SCH ×2 (22:11→23:11)
[2022-08-30] MEDS ORDERED: DOCUSATE SODIUM 100 MG CAPSULE PO SCH (22:16)
[2022-08-30] MEDS ORDERED: ACETAMINOPHEN 325 MG TABLET PO PRN (22:16)
[2022-08-30] MEDS ORDERED: POTASSIUM CHLORIDE 20 MEQ TABLET PO PRN ×2 (22:16)
[2022-08-30] MEDS ORDERED: 0.9 % SODIUM CHLORIDE 1,000 ML IV ONE (22:16)
[2022-08-30] MEDS ORDERED: MAGNESIUM SULFATE 2 GM/50 ML BAG IV PRN (22:16)
[2022-08-30] MEDS ORDERED: POTASSIUM CHLORIDE 40 MEQ in DEXTROSE 5% IN WATER 500 ML IV PRN (22:16)
[2022-08-30] MEDS ORDERED: SENNOSIDES 1 TABLET PO PRN (22:16)
[2022-08-30] MEDS: DOCUSATE SODIUM 100 MG CAPSULE PO SCH (23:10)
[2022-08-30] MEDS: SENNOSIDES 1 TABLET PO SCH (23:17)
[2022-08-31] MEDS: ceFAZolin 1 GM VIAL IV SCH ×2 (03:15→12:00)
--- NOTE | 2022-08-31 05:06 | XRay Report ---
CLINICAL INFORMATION: Transcervical fracture left hip COMPARISON: Preoperative plain films 08/30/2022 FINDINGS: Digital images from the OR show resection of the fracture left femoral head and neck with hip prosthetic replacement. Anatomic alignment. Total fluoroscopy time 0.1 minutes IMPRESSION: Hip prostheses anatomically aligned. Total fluoroscopy time 0.1 minutes Interpreted and Authenticated by: Dhaval Tineo 08/31/22
[2022-08-31] MEDS: 0.9 % SODIUM CHLORIDE 10 ML SYRINGE IV SCH ×4 (06:49→21:56)
[2022-08-31 07:16] LABS: INR 0.9 (0.9-1.1); Prothrombin Time 12.8 sec (11.9-14.5)
[2022-08-31 07:30] LABS: Basophils # (Auto) 0.04 K/mcL (0.00-0.30); Basophils % (Auto) 0.4 % (0.0-2.0); Eosinophils # (Auto) 0.03 K/mcL (0.00-0.70); Eosinophils % (Auto) 0.3 % (0.0-7.0); Hematocrit 34.1 % (34.1-44.9); Hemoglobin 11.1 g/dL (11.2-15.7); Lymphocytes # (Auto) 0.61 K/mcL (1.50-4.80); Lymphocytes % (Auto) 5.5 % (15.5-49.0); Mean Cell Volume 91.7 fL (80.0-100.0); Mean Corpuscular HGB Conc 32.6 g/dL (31.0-36.0); Mean Platelet Volume 10.6 fL (8.8-12.5); Monocytes # (Auto) 0.47 K/mcL (0.10-0.90); Monocytes % (Auto) 4.2 % (1.0-12.0); Neutrophils % (Auto) 89.3 % (38.0-78.0); Platelet Count 206 K/mcL (140-440); RBC 3.72 M/mcL (3.59-5.38); WBC 11.1 K/mcL (4.5-11.0)
--- NOTE | 2022-08-31 07:45 | Orthopedic Progress Note ---
SUBJECTIVE Subjective Patient information: Note initiated : 08/31/22 at 7:42 am Service Date, if different from initiated Date: [] Patient: Jo-Ann Ho 77 y/o F admitted on 08/30/22 for Left hip pain. Chief Complaint: [S/p left hip hemiarthroplasty] Patient is doing well and her pain is well-controlled. She has no complaints. She denies any new onset chest pain, SOA, or calf tenderness. Constitutional Vitals: Vital Signs Temp Pulse Resp BP Pulse Ox O2 Del Method O2 Flow Rate 98.4 F 103 H 16 95/56 93 Nasal Cannula 2.5 08/31/22 07:27 08/31/22 04:00 08/31/22 07:27 08/31/22 07:27 08/31/22 07:27 08/31/22 07:27 08/31/22 07:27 Period Temp Pulse Resp BP Sys/Agrawal Pulse Ox O2 Del Method O2 Flow Rate Last 24 Hr 97 F-98.4 F 89-108 10-29 95-160/56-90 86-100 Nasal Cannula- Simple Mask 2-6 Intake and Output 08/30/22 08/31/22 08/31/22 19:59 03:59 11:59 Intake Total 50 2800 400 Output Total 875 360 Balance 50 1925 40 Weight 135 lb 110 lb Intake & Output: Intake & Output 08/30/22 08/31/22 08/31/22 19:59 03:59 11:59 Intake Total 50 2800 400 Output Total 875 360 Balance 50 1925 40 Weight 135 lb 110 lb Intake: IV 50 100 Ancef 2 gm In Dextrose 5% in 50 Water 50 ml @ 100 mls/hr IV PREOP [facility] Rx#:[id number] Oral 400 IV - Manual Only 2700 Output: Urine Catheter Amount 775 360 Estimated Blood Loss 100 Other: Urine Appearance Clear Clear Uretheral (Boogie) Clear Clear Urine Color Bright Yellow Bright Yellow Uretheral (Boogie) Pale Yellow Urine Odor Uretheral (Boogie) Normal General appearance: no acute distress and thin Head Head exam: Present atraumatic and normocephalic Extremities Exam Extremities exam: Present calf tenderness (negative bilaterally), tenderness (anterior hip), Toya's sign (negative bilaterally), Foot pink and warm and neurovascular intact Neurological Exam Neurological exam: Present alert and oriented X3 Psychiatric Psychiatric exam: Present normal affect OBJ DATA Labs 08/31/22 05:01 08/31/22 05:01 Labs: Abnormal Lab Results 08/31/22 08/30/22 08/30/22 05:01 14:40 14:39 WBC 11.1 H Hgb 11.1 L Immature Gran % (Auto) 0.6 H Neut % (Auto) 89.3 H Lymph % (Auto) 5.5 L Lymph # (Auto) 0.61 L Absolute Neutrophils 9.96 H POC Glucose 213 H Meds: Medications Acetaminophen (Acetaminophen 325 Mg Tablet) 650 mg PO Q6HP PRN; Protocol PRN Reason: Per Pain Protocol/Fever > 101 Hydrocodone Bitart/Acetaminophen (Hydrocodone/Apap 5/325mg Tablet) 0 tab PO Q4HP PRN; Protocol PRN Reason: Per Pain Protocol Last Admin: 08/31/22 03:30 Dose: 1 tab Albuterol/Ipratropium (Ipratropium/Albuterol 3 Ml Ampul.Neb) 3 ml NEB Q4HP PRN PRN Reason: Shortness Of Breath Aspirin (Aspirin 81 Mg Tab.Chew) 81 mg PO BID [facility] Bisacodyl (Bisacodyl 10 Mg Supp.Rect) 10 mg MS Q2-3DAYS PRN PRN Reason: Constipation Cefazolin Sodium (Cefazolin 1 Gm Vial) 2 gm IV Q8H [facility] Stop: 08/31/22 10:31 Last Admin: 08/31/22 03:15 Dose: 2 gm Docusate Sodium (Docusate Sodium 100 Mg Capsule) 100 mg PO BID [facility] Last Admin: 08/30/22 23:10 Dose: Not Given Sodium Chloride (Sodium Chloride 0.45%) 1,000 mls @ 75 mls/hr IV .[id number] [facility] Last Admin: 08/30/22 22:30 Dose: 75 mls/hr Potassium Chloride 40 meq/ (Dextrose) 520 mls @ 130 mls/hr IV UD PRN PRN Reason: Potassium < 3 Magnesium Sulfate (Magnesium Sulfate) 2 gm in 50 mls @ 50 mls/hr IV UD PRN PRN Reason: Magnesium </= 1.6 Sodium Chloride (Sodium Chloride 0.9%) 1,000 mls @ 75 mls/hr IV .[id number] [facility] Stop: 08/31/22 11:35 Last Admin: 08/30/22 23:10 Dose: Not Given Magnesium Hydroxide (Magnesium Hydroxide 30 Ml Oral.Susp) 30 ml PO BIDP PRN PRN Reason: Constipation Morphine Sulfate (Morphine 4 Mg/Ml Vial) 0 mg IV Q1HP PRN; Protocol PRN Reason: Per Pain Protocol Ondansetron HCl (Ondansetron 4 Mg/2 Ml Vial) 4 mg IV Q4HP PRN PRN Reason: Nausea And Vomiting Polyethylene Glycol (Polyethylene Glycol 3350 17 Gm Packet) 17 gm PO DAILYP PRN PRN Reason: Constipation Potassium Chloride (Potassium Chloride 20 Meq Tablet) 40 meq PO UD PRN PRN Reason: Potssium is 3-3.5 Potassium Chloride (Potassium Chloride 20 Meq Tablet) 40 meq PO UD PRN PRN Reason: Potassium < 3 Senna (Sennosides 1 Tablet) 2 tab PO HS [facility] Last Admin: 08/30/22 23:17 Dose: Not Given Senna (Sennosides 1 Tablet) 2 tab PO DAILYP PRN PRN Reason: Constipation Sodium Biphosphate/Sodium Phosphate (Fleets Adult Enema) 1 dose MS Q3-4DAYS PRN PRN Reason: Constipation Sodium Chloride (0.9 % Sodium Chloride 10 Ml Syringe) 10 ml IV Q8 [facility] Last Admin: 08/31/22 06:49 Dose: Not Given A/P Assessment and plan (1) Closed fracture of left hip: Assessment and plan: Mobilize with PT/OT. WBAT. Case management consult to discuss discharge options home vs rehab. Patient will f/u with [facility] in 2 weeks. Status: Acute Time Spent With Patient Time: Total time spent is greater than 50% in coordination of care (as documented) at patient's floor/unit and/or counseling patient:
[2022-08-31 07:57] LABS: ALT/SGPT 40 U/L (<40); AST/SGOT 38 U/L (<32); Albumin 3.4 gm/dL (3.2-5.2); Albumin/Globulin Ratio 1.7 (1.0-2.3); Alkaline Phosphatase 42 U/L (39-117); Bilirubin,Direct < 0.2 mg/dL (0-0.3); Bilirubin,Total 0.3 mg/dL (0.1-1.0); Blood Urea Nitrogen 9 mg/dL (8-23); Calcium 8.4 mg/dL (8.6-10.4); Carbon Dioxide 25 mmol/L (22-30); Chloride 95 mmol/L (96-108); Glomerular Filtration Rate 93; Glucose 234 mg/dL (70-105); Lactate Dehydrogenase 240 U/L (135-225); Phosphorous 2.6 mg/dL (2.5-4.5); Triglycerides 50 mg/dL (<150); Uric Acid 3.5 mg/dL (2.5-8.0)
--- NOTE | 2022-08-31 08:28 | Internal Med Progress Note ---
SUBJECTIVE Subjective Patient information: Note initiated : 08/31/22 at 8:27 am Service Date, if different from initiated Date: [] Patient: Jo-Ann Ho a 77 y/o F admitted on 08/30/22 for Left hip pain. Chief Complaint: [] Interval history: History of present illness: Ms. Ho is a 77 year old F Presents to the ED after fall due to tripping onto her left hip. Patient states she was getting up from her recliner and she tripped on her sh oes. She had immediate pain when she fell to the ground on her left side. Work-up in the ED revealed left hip fracture. Dr. Polk was contacted from the ED. Patient denies any recent illnesses. No chest pain shortness of breath. Patient has a history of diabetes hypertension hypothyroidism depression anxiety hyperlipidemia. EKG normal sinus rhythm. 08/31 Patient slept okay. Hip pain controlled. She did have an episode of nausea vomiting while starting to get up to work with PT today. She was also on oxygen postop and through the night. Trialing on room air this morning and she seems to be doing well. We will be aggressive with incentive spirometry. Hyponatremia on today's labs. Review of Systems: denies headache/fever/chills/chest or abdominal pain/cough/dyspnea/diarrhea. Ot herwise see above. Constitutional Vitals: Vital Signs Temp Pulse Resp BP Pulse Ox O2 Del Method O2 Flow Rate 98.4 F 103 H 16 95/56 93 Nasal Cannula 2.5 08/31/22 07:27 08/31/22 04:00 08/31/22 07:27 08/31/22 07:27 08/31/22 07:27 08/31/22 07:27 08/31/22 07:27 Period Temp Pulse Resp BP Sys/Agrawal Pulse Ox O2 Del Method O2 Flow Rate Last 24 Hr 97 F-98.4 F 89-108 10-29 95-160/56-90 86-100 Nasal Cannula- Simple Mask 2-6 Intake and Output 08/30/22 08/31/22 08/31/22 19:59 03:59 11:59 Intake Total 50 2800 400 Output Total 875 360 Balance 50 1925 40 Weight 61.235 kg 49.895 kg Intake & Output: Intake & Output 08/30/22 08/31/22 08/31/22 19:59 03:59 11:59 Intake Total 50 2800 400 Output Total 875 360 Balance 50 1925 40 Weight 61.235 kg 49.895 kg Intake: IV 50 100 Ancef 2 gm In Dextrose 5% in 50 Water 50 ml @ 100 mls/hr IV PREOP [facility] Rx#:[id number] Oral 400 IV - Manual Only 2700 Output: Urine Catheter Amount 775 360 Estimated Blood Loss 100 Other: Urine Appearance Clear Clear Uretheral (Boogie) Clear Clear Urine Color Bright Yellow Bright Yellow Uretheral (Boogie) Pale Yellow Urine Odor Uretheral (Boogie) Normal Exam: General: Alert, Awake, No acute Distress Eyes/N/T: EOMI, Head/Neck: neck supple, CV: RRR, No murmurs, Pulm: Clear b/l, no wheezing/rhonchi/rales Abd: soft, nontender, +BS x4 Ext: no clubbing/cyanosis/edema Neuro: Alert, no focal deficits, moves all extremities, Skin: warm/dry OBJ DATA Labs 08/31/22 05:01 08/31/22 05:01 Labs: Abnormal Lab Results 08/31/22 08/31/22 08/30/22 05:01 05:01 14:40 WBC 11.1 H Hgb 11.1 L Immature Gran % (Auto) Neut % (Auto) 89.3 H Lymph % (Auto) 5.5 L Lymph # (Auto) 0.61 L Absolute Neutrophils 9.96 H Sodium 130 L Chloride 95 L Creatinine 0.5 L Glucose 234 H POC Glucose 213 H Calcium 8.4 L GGT 57 H AST 38 H ALT 40 H Lactate Dehydrogenase 240 H Total Protein 5.4 L Globulin 2.0 L 08/30/22 14:39 WBC Hgb Immature Gran % (Auto) 0.6 H Neut % (Auto) Lymph % (Auto) Lymph # (Auto) Absolute Neutrophils Sodium Chloride Creatinine Glucose POC Glucose Calcium GGT AST ALT Lactate Dehydrogenase Total Protein Globulin Meds: Medications Acetaminophen (Acetaminophen 325 Mg Tablet) 650 mg PO Q6HP PRN; Protocol PRN Reason: Per Pain Protocol/Fever > 101 Hydrocodone Bitart/Acetaminophen (Hydrocodone/Apap 5/325mg Tablet) 0 tab PO Q4HP PRN; Protocol PRN Reason: Per Pain Protocol Last Admin: 08/31/22 03:30 Dose: 1 tab Albuterol/Ipratropium (Ipratropium/Albuterol 3 Ml Ampul.Neb) 3 ml NEB Q4HP PRN PRN Reason: Shortness Of Breath Aspirin (Aspirin 81 Mg Tab.Chew) 81 mg PO BID [facility] Bisacodyl (Bisacodyl 10 Mg Supp.Rect) 10 mg MI Q2-3DAYS PRN PRN Reason: Constipation Cefazolin Sodium (Cefazolin 1 Gm Vial) 2 gm IV Q8H [facility] Stop: 08/31/22 10:31 Last Admin: 08/31/22 03:15 Dose: 2 gm Docusate Sodium (Docusate Sodium 100 Mg Capsule) 100 mg PO BID [facility] Last Admin: 08/30/22 23:10 Dose: Not Given Sodium Chloride (Sodium Chloride 0.45%) 1,000 mls @ 75 mls/hr IV .[id number] [facility] Last Admin: 08/30/22 22:30 Dose: 75 mls/hr Potassium Chloride 40 meq/ (Dextrose) 520 mls @ 130 mls/hr IV UD PRN PRN Reason: Potassium < 3 Magnesium Sulfate (Magnesium Sulfate) 2 gm in 50 mls @ 50 mls/hr IV UD PRN PRN Reason: Magnesium </= 1.6 Sodium Chloride (Sodium Chloride 0.9%) 1,000 mls @ 75 mls/hr IV .[id number] [facility] Stop: 08/31/22 11:35 Last Admin: 08/30/22 23:10 Dose: Not Given Magnesium Hydroxide (Magnesium Hydroxide 30 Ml Oral.Susp) 30 ml PO BIDP PRN PRN Reason: Constipation Morphine Sulfate (Morphine 4 Mg/Ml Vial) 0 mg IV Q1HP PRN; Protocol PRN Reason: Per Pain Protocol Ondansetron HCl (Ondansetron 4 Mg/2 Ml Vial) 4 mg IV Q4HP PRN PRN Reason: Nausea And Vomiting Polyethylene Glycol (Polyethylene Glycol 3350 17 Gm Packet) 17 gm PO DAILYP PRN PRN Reason: Constipation Potassium Chloride (Potassium Chloride 20 Meq Tablet) 40 meq PO UD PRN PRN Reason: Potssium is 3-3.5 Potassium Chloride (Potassium Chloride 20 Meq Tablet) 40 meq PO UD PRN PRN Reason: Potassium < 3 Senna (Sennosides 1 Tablet) 2 tab PO [facility] Last Admin: 08/30/22 23:17 Dose: Not Given Senna (Sennosides 1 Tablet) 2 tab PO DAILYP PRN PRN Reason: Constipation Sodium Biphosphate/Sodium Phosphate (Fleets Adult Enema) 1 dose MI Q3-4DAYS PRN PRN Reason: Constipation Sodium Chloride (0.9 % Sodium Chloride 10 Ml Syringe) 10 ml IV Q8 [facility] Last Admin: 08/31/22 06:49 Dose: Not Given A/P Narrative A/P Narrative: A: *Left hip fracture: s/p ORIF (08/30) *Acute hypoxic respiratory failure: post-op and o/n *Hyponatremia: *DM2: *HTN/HLD: *Depression/anxiety: *Hypothyroidism: cont synthroid P: -Dr. Polk for orthopedic surgery -Pain control -Incentive spirometry and chest x-ray if further desats -ua -SSI -Trend and follow-up sodium -Continue home statin, cont ACEI -Continue home psych medications -PT/OT -CM for placement -ppx: asa 81mg bid per postop Ortho Time Spent With Patient Time: Total time spent is greater than 50% in coordination of care (as documented) at patient's floor/unit and/or counseling patient: Subsequent: Total time with patient: 35 - 49 minutes
[2022-08-31] MEDS ORDERED: LEVOTHYROXINE 88 MCG TABLET PO SCH (09:00)
--- NOTE | 2022-08-31 09:16 | XRay Report ---
CLINICAL INFORMATION: Left hip prostheses following fracture FINDINGS: The left hip prostheses is anatomically aligned. Pre-existing right hip prostheses is anatomically aligned without loosening or infection.. There are no osseous abnormalities. Soft tissue swelling over the surgical site-as expected. IMPRESSION: Left hip prostheses in anatomic alignment. Interpreted and Authenticated by: Dhaval Tineo 08/31/22
[2022-08-31 09:17] LABS: Hemoglobin A1C 6.3 % Hgb (4.0-6.0)
[2022-08-31] MEDS: LEVOTHYROXINE 88 MCG TABLET PO SCH (10:03)
[2022-08-31] MEDS: DOCUSATE SODIUM 100 MG CAPSULE PO SCH ×2 (10:03→21:56)
[2022-08-31] MEDS: buPROPion 150 MG TAB.XL.24H PO SCH (10:03)
[2022-08-31] MEDS: ASPIRIN 81 MG TAB.CHEW PO SCH ×2 (10:03→21:54)
--- NOTE | 2022-08-31 11:48 | EKG ---
[facility] Test Date: 2022-08-30 Pat Name: Jo-Ann Ho Department: ED Room: Gender: Female Records Tech: [email or web address] : [id number] Requested By: Minal Leal Order Number: [id number] Reading MD: Dhaval Lynn M.D. Measurements Intervals [place] Rate: 94 P: 39 [place]: 216 QRS: -56 QRSD: 87 T: 28 QT: 344 QTc: 431 Interpretive Statements Sinus rhythm Inferior infarct, old Electronically Signed On 08-31-2022 11:47:46 PST by Dhaval Lynn M.D. /[id number]/[id number]
[2022-08-31 13:39] LABS: Appearance,Urine CLEAR (Clear); Bilirubin,Urine NEGATIVE (Negative); Color,Urine LT. YELLOW; Culture Indicated,Urine No; Glucose,Urine (UA) NEGATIVE (Negative); Ketones,Urine NEGATIVE (Negative); Leukocyte Esterase,Urine NEGATIVE /uL (Negative); Mucus,Urine FEW /hpf; Nitrate,Urine NEGATIVE (Negative); Protein,Urine NEGATIVE (Negative); Specific Gravity,Urine <= 1.005 (1.000-1.035); Urine Blood SMALL ery/mcL (Negative); Urine RBC 1 /hpf (0-3); Urine Squamous Epithelial Cell 0 /hpf (0-4); Urine WBC 0 /hpf (0-4); Urobilinogen,Urine Normal
[2022-08-31] MEDS ORDERED: LISINOPRIL 2.5 MG TABLET PO SCH (21:00)
[2022-08-31] MEDS: SENNOSIDES 1 TABLET PO SCH (21:55)
[2022-08-31] MEDS: SIMVASTATIN 10 MG TABLET PO SCH (21:55)
[2022-08-31] MEDS: AMITRIPTYLINE 10 MG TABLET PO SCH (21:56)
[2022-08-31] MEDS ORDERED: LACTATED RINGERS 1,000 ML IV SCH (23:56)
[2022-09-01] MEDS ORDERED: LACTATED RINGERS 1,000 ML IV ONE
[2022-09-01] MEDS ORDERED: LACTATED RINGERS 1,000 ML IV SCH ×2 (00:15→00:30)
[2022-09-01] MEDS: 0.9 % SODIUM CHLORIDE 10 ML SYRINGE IV SCH ×3 (06:14→20:30)
[2022-09-01 07:01] LABS: Prothrombin Time 13.8 sec (11.9-14.5)
[2022-09-01 07:23] LABS: Hematocrit 24.2 % (34.1-44.9); Hemoglobin 8.1 g/dL (11.2-15.7)
[2022-09-01] MEDS: LEVOTHYROXINE 88 MCG TABLET PO SCH (07:23)
[2022-09-01] MEDS: buPROPion 150 MG TAB.XL.24H PO SCH (08:32)
[2022-09-01] MEDS: ASPIRIN 81 MG TAB.CHEW PO SCH ×2 (08:32→20:30)
[2022-09-01] MEDS: DOCUSATE SODIUM 100 MG CAPSULE PO SCH ×2 (08:32→20:29)
--- NOTE | 2022-09-01 09:07 | Internal Med Progress Note ---
SUBJECTIVE Subjective Patient information: Note initiated : 09/01/22 at 9:03 am Service Date, if different from initiated Date: [] Patient: Jo-Ann Ho a 77 y/o F admitted on 08/30/22 for Left hip pain. Chief Complaint: [] Interval history: History of present illness: Ms. Ho is a 77 year old F Presents to the ED after fall due to tripping onto her left hip. Patient states she was getting up from her recliner and she tripped on her sh oes. She had immediate pain when she fell to the ground on her left side. Work-up in the ED revealed left hip fracture. Dr. Polk was contacted from the ED. Patient denies any recent illnesses. No chest pain shortness of breath. Patient has a history of diabetes hypertension hypothyroidism depression anxiety hyperlipidemia. EKG normal sinus rhythm. 08/31 Patient slept okay. Hip pain controlled. She did have an episode of nausea vomiting while starting to get up to work with PT today. She was also on oxygen postop and through the night. Trialing on room air this morning and she seems to be doing well. We will be aggressive with incentive spirometry. Hyponatremia on today's labs. 09/01 Patient febrile overnight. Blood cultures obtained. pt on room air. Soft BP o/n, hold home acei. Mild tachycardia but looks like that is chronic per old records. Postop anemia. Patient says she is feeling well today. Denies chest pain coughing shortness of breath. Denies dysuria. Review of Systems: denies headache/fever/chills/chest or abdominal pain/cough/dyspnea/diarrhea. Otherwise see above. Constitutional Vitals: Vital Signs Temp Pulse Resp BP Pulse Ox O2 Del Method O2 Flow Rate 98.2 F 99 H 18 102/50 96 Room Air 2.5 09/01/22 07:43 09/01/22 07:43 09/01/22 07:43 09/01/22 07:43 09/01/22 07:43 09/01/22 07:43 08/31/22 07:27 Period Temp Pulse Resp BP Sys/Agrawal Pulse Ox O2 Del Method O2 Flow Rate Last 24 Hr 98.2 F-102.1 F 99-116 14-20 85-110/42-54 91-96 Room Air-Room Air Intake and Output 01/09/01/22 09/01/22 19:59 03:59 11:59 Intake Total 500 1450 Output Total 1400 1700 Balance -1400 500 -250 Weight 52.163 kg Intake & Output: Intake & Output 08/31/22 09/01/22 09/01/22 19:59 03:59 11:59 Intake Total 500 1450 Output Total 1400 1700 Balance -1400 500 -250 Weight 52.163 kg Intake: IV 500 1000 Sodium Chloride 0.45% 1,000 ml 1000 @ 75 mls/hr IV .[id number] ISAIAH Rx# :[id number] Lactated Ringers 1,000 ml @ 500 500 mls/hr IV .Q2H ISAIAH Rx#: [id number] Oral 450 Output: Urine Catheter Amount 1400 1700 Other: Meal Breakfast Percent of Meal Consumed 25% Feeding Ability Assist with Tray Set Up Urine Appearance Clear Clear Uretheral (Boogie) Clear Urine Color Pale Yellow Yellow Pale Pale Uretheral (Boogie) Yellow Urine Odor Normal Strong Exam: General: Alert, Awake, No acute Distress Eyes/N/T: EOMI, Head/Neck: neck supple, CV: RRR, No murmurs, Pulm: Clear b/l, no wheezing/rhonchi/rales Abd: soft, nontender, +BS x4 Ext: no clubbing/cyanosis/edema Neuro: Alert, no focal deficits, moves all extremities, Skin: warm/dry OBJ DATA Labs 09/01/22 05:40 08/31/22 05:01 Labs: Abnormal Lab Results 09/01/22 08/31/22 08/31/22 05:40 12:15 05:01 WBC Hgb 8.1 L Hct 24.2 L Immature Gran % (Auto) Neut % (Auto) Lymph % (Auto) Lymph # (Auto) Absolute Neutrophils Sodium Chloride Creatinine Glucose POC Glucose Hemoglobin A1c 6.3 H Calcium GGT AST ALT Lactate Dehydrogenase Total Protein Globulin Urine Occult Blood Small A Urine Mucus Few A 08/31/22 08/31/22 08/30/22 05:01 05:01 14:40 WBC 11.1 H Hgb 11.1 L Hct Immature Gran % (Auto) Neut % (Auto) 89.3 H Lymph % (Auto) 5.5 L Lymph # (Auto) 0.61 L Absolute Neutrophils 9.96 H Sodium 130 L Chloride 95 L Creatinine 0.5 L Glucose 234 H POC Glucose 213 H Hemoglobin A1c Calcium 8.4 L GGT 57 H AST 38 H ALT 40 H Lactate Dehydrogenase 240 H Total Protein 5.4 L Globulin 2.0 L Urine Occult Blood Urine Mucus 08/30/22 14:39 WBC Hgb Hct Immature Gran % (Auto) 0.6 H Neut % (Auto) Lymph % (Auto) Lymph # (Auto) Absolute Neutrophils Sodium Chloride Creatinine Glucose POC Glucose Hemoglobin A1c Calcium GGT AST ALT Lactate Dehydrogenase Total Protein Globulin Urine Occult Blood Urine Mucus Meds: Medications Acetaminophen (Acetaminophen 325 Mg Tablet) 650 mg PO Q6HP PRN; Protocol PRN Reason: Per Pain Protocol/Fever > 101 Last Admin: 08/31/22 21:54 Dose: 650 mg Hydrocodone Bitart/Acetaminophen (Hydrocodone/Apap 5/325mg Tablet) 0 tab PO Q4HP PRN; Protocol PRN Reason: Per Pain Protocol Last Admin: 08/31/22 03:30 Dose: 1 tab Albuterol/Ipratropium (Ipratropium/Albuterol 3 Ml Ampul.Neb) 3 ml NEB Q4HP PRN PRN Reason: Shortness Of Breath Amitriptyline HCl (Amitriptyline 10 Mg Tablet) 10 mg PO [facility] Last Admin: 08/31/22 21:56 Dose: 10 mg Aspirin (Aspirin 81 Mg Tab.Chew) 81 mg PO BID [facility] Last Admin: 09/01/22 08:32 Dose: 81 mg Bisacodyl (Bisacodyl 10 Mg Supp.Rect) [address] Q2-3DAYS PRN PRN Reason: Constipation Bupropion HCl (Bupropion 150 Mg Tab.Xl.24h) 150 mg PO [facility] Last Admin: 09/01/22 08:32 Dose: 150 mg Docusate Sodium (Docusate Sodium 100 Mg Capsule) 100 mg PO BID [facility] Last Admin: 09/01/22 08:32 Dose: 100 mg Potassium Chloride 40 meq/ (Dextrose) 520 mls @ 130 mls/hr IV UD PRN PRN Reason: Potassium < 3 Magnesium Sulfate (Magnesium Sulfate) 2 gm in 50 mls @ 50 mls/hr IV UD PRN PRN Reason: Magnesium </= 1.6 Levothyroxine Sodium (Levothyroxine 88 Mcg Tablet) [facility] Last Admin: 09/01/22 07:23 Dose: 88 mcg Magnesium Hydroxide (Magnesium Hydroxide 30 Ml Oral.Susp) 30 ml PO BIDP PRN PRN Reason: Constipation Morphine Sulfate (Morphine 4 Mg/Ml Vial) 0 mg IV Q1HP PRN; Protocol PRN Reason: Per Pain Protocol Ondansetron HCl (Ondansetron 4 Mg/2 Ml Vial) 4 mg IV Q4HP PRN PRN Reason: Nausea And Vomiting Last Admin: 08/31/22 08:52 Dose: 4 mg Polyethylene Glycol (Polyethylene Glycol 3350 17 Gm Packet) 17 gm PO DAILYP PRN PRN Reason: Constipation Potassium Chloride (Potassium Chloride 20 Meq Tablet) 40 meq PO UD PRN PRN Reason: Potssium is 3-3.5 Potassium Chloride (Potassium Chloride 20 Meq Tablet) 40 meq PO UD PRN PRN Reason: Potassium < 3 Senna (Sennosides 1 Tablet) 2 tab PO [facility] Last Admin: 08/31/22 21:55 Dose: 2 tab Senna (Sennosides 1 Tablet) 2 tab PO DAILYP PRN PRN Reason: Constipation Simvastatin (Simvastatin 10 Mg Tablet) 10 mg PO [facility] Last Admin: 08/31/22 21:55 Dose: 10 mg Sodium Biphosphate/Sodium Phosphate (Fleets Adult Enema) [address] Q3-4DAYS PRN PRN Reason: Constipation Sodium Chloride (0.9 % Sodium Chloride 10 Ml Syringe) 10 ml IV Q8 [facility] Last Admin: 09/01/22 06:14 Dose: 10 ml A/P Narrative A/P Narrative: A: *Left hip fracture: s/p ORIF (08/30) *Acute hypoxic respiratory failure: post-op and o/n *Hyponatremia: *post-op anemia: *DM2: *HTN/HLD: *Depression/anxiety: *Hypothyroidism: cont synthroid *Soft BP o/n *Fever o/n: monitor, BC obtained P: -Dr. Polk for orthopedic surgery -Pain control -monitor H&H -IS -SSI -Trend and follow-up sodium -Continue home statin, hold ACEI for soft BP -Continue home psych medications -PT/OT -CM for placement -ppx: asa 81mg bid per postop Ortho Time Spent With Patient Time: Total time spent is greater than 50% in coordination of care (as documented) at patient's floor/unit and/or counseling patient: Subsequent: Total time with patient: 35 - 49 minutes
--- NOTE | 2022-09-01 09:21 | Orthopedic Progress Note ---
SUBJECTIVE Subjective Patient information: Note initiated : 09/01/22 at 9:18 am Service Date, if different from initiated Date: [] Patient: Jo-Ann Ho 77 y/o F admitted on 08/30/22 for Left hip pain. Chief Complaint: No c/o. Principal diagnosis: L hip fx Constitutional Vitals: Vital Signs Temp Pulse Resp BP Pulse Ox O2 Del Method O2 Flow Rate 98.2 F 99 H 18 102/50 96 Room Air 2.5 09/01/22 07:43 09/01/22 07:43 09/01/22 07:43 09/01/22 07:43 09/01/22 07:43 09/01/22 07:43 08/31/22 07:27 Period Temp Pulse Resp BP Sys/Agrawal Pulse Ox O2 Del Method O2 Flow Rate Last 24 Hr 98.2 F-102.1 F 99-116 14-20 85-110/42-54 91-96 Room Air-Room Air Intake and Output 08/31/22 09/01/22 09/01/22 19:59 03:59 11:59 Intake Total 500 1450 Output Total 1400 1700 Balance -1400 500 -250 Weight 115 lb Intake & Output: Intake & Output 08/31/22 09/01/22 09/01/22 19:59 03:59 11:59 Intake Total 500 1450 Output Total 1400 1700 Balance -1400 500 -250 Weight 115 lb Intake: IV 500 1000 Sodium Chloride 0.45% 1,000 ml 1000 @ 75 mls/hr IV .[id number] [facility]AIA[facility] Rx# :[id number] Lactated Ringers 1,000 ml @ 500 500 mls/hr IV .Q2H ISAIAH Rx#: [id number] Oral 450 Output: Urine Catheter Amount 1400 1700 Other: Meal Breakfast Percent of Meal Consumed 25% Feeding Ability Assist with Tray Set Up Urine Appearance Clear Clear Uretheral (Boogie) Clear Urine Color Pale Yellow Yellow Pale Pale Uretheral (Boogie) Yellow Urine Odor Normal Strong Additional findings Additional findings: Bandages c/d/i NVI-distal OBJ DATA Labs 09/01/22 05:40 08/31/22 05:01 Labs: Abnormal Lab Results 09/01/22 08/31/22 08/31/22 05:40 12:15 05:01 WBC Hgb 8.1 L Hct 24.2 L Immature Gran % (Auto) Neut % (Auto) Lymph % (Auto) Lymph # (Auto) Absolute Neutrophils Sodium Chloride Creatinine Glucose POC Glucose Hemoglobin A1c 6.3 H Calcium GGT AST ALT Lactate Dehydrogenase Total Protein Globulin Urine Occult Blood Small A Urine Mucus Few A 08/31/22 08/31/22 08/30/22 05:01 05:01 14:40 WBC 11.1 H Hgb 11.1 L Hct Immature Gran % (Auto) Neut % (Auto) 89.3 H Lymph % (Auto) 5.5 L Lymph # (Auto) 0.61 L Absolute Neutrophils 9.96 H Sodium 130 L Chloride 95 L Creatinine 0.5 L Glucose 234 H POC Glucose 213 H Hemoglobin A1c Calcium 8.4 L GGT 57 H AST 38 H ALT 40 H Lactate Dehydrogenase 240 H Total Protein 5.4 L Globulin 2.0 L Urine Occult Blood Urine Mucus 08/30/22 14:39 WBC Hgb Hct Immature Gran % (Auto) 0.6 H Neut % (Auto) Lymph % (Auto) Lymph # (Auto) Absolute Neutrophils Sodium Chloride Creatinine Glucose POC Glucose Hemoglobin A1c Calcium GGT AST ALT Lactate Dehydrogenase Total Protein Globulin Urine Occult Blood Urine Mucus Meds: Medications Acetaminophen (Acetaminophen 325 Mg Tablet) 650 mg PO Q6HP PRN; Protocol PRN Reason: Per Pain Protocol/Fever > 101 Last Admin: 08/31/22 21:54 Dose: 650 mg Hydrocodone Bitart/Acetaminophen (Hydrocodone/Apap 5/325mg Tablet) 0 tab PO Q4HP PRN; Protocol PRN Reason: Per Pain Protocol Last Admin: 08/31/22 03:30 Dose: 1 tab Albuterol/Ipratropium (Ipratropium/Albuterol 3 Ml Ampul.Neb) 3 ml NEB Q4HP PRN PRN Reason: Shortness Of Breath Amitriptyline HCl (Amitriptyline 10 Mg Tablet) 10 mg PO [facility] Last Admin: 08/31/22 21:56 Dose: 10 mg Aspirin (Aspirin 81 Mg Tab.Chew) 81 mg PO BID [facility] Last Admin: 09/01/22 08:32 Dose: 81 mg Bisacodyl (Bisacodyl 10 Mg Supp.Rect) 10 mg [place] Q2-3DAYS PRN PRN Reason: Constipation Bupropion HCl (Bupropion 150 Mg Tab.Xl.24h) 150 mg PO QAM [facility] Last Admin: 09/01/22 08:32 Dose: 150 mg Docusate Sodium (Docusate Sodium 100 Mg Capsule) 100 mg PO BID [facility] Last Admin: 09/01/22 08:32 Dose: 100 mg Potassium Chloride 40 meq/ (Dextrose) 520 mls @ 130 mls/hr IV UD PRN PRN Reason: Potassium < 3 Magnesium Sulfate (Magnesium Sulfate) 2 gm in 50 mls @ 50 mls/hr IV UD PRN PRN Reason: Magnesium </= 1.6 Levothyroxine Sodium (Levothyroxine 88 Mcg Tablet) 88 mcg PO QAMAC [facility] Last Admin: 09/01/22 07:23 Dose: 88 mcg Magnesium Hydroxide (Magnesium Hydroxide 30 Ml Oral.Susp) 30 ml PO BIDP PRN PRN Reason: Constipation Morphine Sulfate (Morphine 4 Mg/Ml Vial) 0 mg IV Q1HP PRN; Protocol PRN Reason: Per Pain Protocol Ondansetron HCl (Ondansetron 4 Mg/2 Ml Vial) 4 mg IV Q4HP PRN PRN Reason: Nausea And Vomiting Last Admin: 08/31/22 08:52 Dose: 4 mg Polyethylene Glycol (Polyethylene Glycol 3350 17 Gm Packet) 17 gm PO DAILYP PRN PRN Reason: Constipation Potassium Chloride (Potassium Chloride 20 Meq Tablet) 40 meq PO UD PRN PRN Reason: Potssium is 3-3.5 Potassium Chloride (Potassium Chloride 20 Meq Tablet) 40 meq PO UD PRN PRN Reason: Potassium < 3 Senna (Sennosides 1 Tablet) 2 tab PO [facility] Last Admin: 08/31/22 21:55 Dose: 2 tab Senna (Sennosides 1 Tablet) 2 tab PO DAILYP PRN PRN Reason: Constipation Simvastatin (Simvastatin 10 Mg Tablet) 10 mg PO [facility] Last Admin: 08/31/22 21:55 Dose: 10 mg Sodium Biphosphate/Sodium Phosphate (Fleets Adult Enema) 1 dose [place] Q3-4DAYS PRN PRN Reason: Constipation Sodium Chloride (0.9 % Sodium Chloride 10 Ml Syringe) 10 ml IV Q8 [facility] Last Admin: 09/01/22 06:14 Dose: 10 ml Impressions Impression: 2 days s/p L hip fx-stable A/P Assessment and plan (1) Closed fracture of left hip: Status: Acute Comment: Mobilize with PT discharge to home v SNF per hospitalist. Time Spent With Patient Time: Total time spent is greater than 50% in coordination of care (as documented) at patient's floor/unit and/or counseling patient: Subsequent: Total time with patient: Less than 25 minutes
[2022-09-01 11:26] LABS: Blood Urea Nitrogen 8 mg/dL (8-23); Calcium 8.6 mg/dL (8.6-10.4); Carbon Dioxide 26 mmol/L (22-30); Chloride 100 mmol/L (96-108); Glomerular Filtration Rate 93; Glucose 206 mg/dL (70-105)
[2022-09-01] MEDS ORDERED: DEXTROSE 50% 50 ML VIAL IV PRN (11:38)
[2022-09-01] MEDS ORDERED: DEXTROSE 31 GM ORAL.SUSP PO PRN (11:38)
[2022-09-01] MEDS: INSULIN LISPRO 1 UNIT/0.01 ML UNIT SQ SCH ×2 (16:55→20:31)
[2022-09-01] MEDS: SENNOSIDES 1 TABLET PO SCH (20:29)
[2022-09-01] MEDS: SIMVASTATIN 10 MG TABLET PO SCH (20:30)
[2022-09-01] MEDS: AMITRIPTYLINE 10 MG TABLET PO SCH (20:30)
[2022-09-02] MEDS: 0.9 % SODIUM CHLORIDE 10 ML SYRINGE IV SCH ×2 (06:31→12:31)
[2022-09-02 06:45] LABS: Hematocrit 23.9 % (34.1-44.9); Hemoglobin 7.8 g/dL (11.2-15.7)
[2022-09-02 06:52] LABS: Prothrombin Time 13.9 sec (11.9-14.5)
[2022-09-02] MEDS: LEVOTHYROXINE 88 MCG TABLET PO SCH (07:25)
[2022-09-02] MEDS: buPROPion 150 MG TAB.XL.24H PO SCH (07:56)
[2022-09-02] MEDS: INSULIN LISPRO 1 UNIT/0.01 ML UNIT SQ SCH ×2 (07:56→12:30)
[2022-09-02] MEDS: ASPIRIN 81 MG TAB.CHEW PO SCH (07:56)
[2022-09-02] MEDS: DOCUSATE SODIUM 100 MG CAPSULE PO SCH (07:57)
--- NOTE | 2022-09-02 09:20 | Internal Med Progress Note ---
SUBJECTIVE Subjective Patient information: Note initiated : 09/02/22 at 9:17 am Service Date, if different from initiated Date: [] Patient: Jo-Ann Ho a 77 y/o F admitted on 08/30/22 for Left hip pain. Chief Complaint: [] Principal diagnosis: L hip fx Interval history: History of present illness: Ms. Ho is a 77 year old F Presents to the ED after fall due to tripping onto her left hip. Patient states she was getting up from her recliner and she tripped on her shoes. She had immediate pain when she fell to the ground on her left side. Work-up in the ED revealed left hip fracture. Dr. Polk was contacted from the ED. Patient denies any recent illnesses. No chest pain shortness of breath. Patient has a history of diabetes hypertension hypothyroidism depression anxiety hyperlipidemia. EKG normal sinus rhythm. 08/31 Patient slept okay. Hip pain controlled. She did have an episode of nausea vomiting while starting to get up to work with PT today. She was also on oxygen postop and through the night. Trialing on room air this morning and she seems to be doing well. We will be aggressive with incentive spirometry. Hyponatremia on today's labs. 09/01 Patient febrile overnight. Blood cultures obtained. pt on room air. Soft BP o/n, hold home acei. Mild tachycardia but looks like that is chronic per old records. Postop anemia. Patient says she is feeling well today. Denies chest pain coughing shortness of breath. Denies dysuria. 09/02 Patient sleeping but arousable. No overnight or new complaints. Afebrile. Blood cultures negative thus far. Hemoglobin 7.8. Slight drop from 8.1 yesterday. Sodium mildly low stable. Review of Systems: denies headache/fever/chills/chest or abdominal pain/cough/dyspnea/diarrhea. Otherwise see above. Constitutional Vitals: Vital Signs Temp Pulse Resp BP Pulse Ox O2 Del Method O2 Flow Rate 98.0 F 98 H 16 119/54 96 Room Air 1 09/02/22 07:00 09/02/22 07:00 09/02/22 07:00 09/02/22 07:00 09/02/22 07:00 09/02/22 07:00 09/02/22 03:55 Period Temp Pulse Resp BP Sys/Agrawal Pulse Ox O2 Del Method O2 Flow Rate Last 24 Hr 97.8 F-99.1 F 78-114 14-20 99-119/53-67 93-96 Nasal Cannula- Room Air 1 Intake and Output 09/01/22 09/02/22 09/02/22 19:59 03:59 11:59 Intake Total 400 1300 400 Output Total 1400 700 300 Balance -1000 600 100 Weight 53.977 kg Intake & Output: Intake & Output 09/01/22 09/02/22 09/02/22 19:59 03:59 11:59 Intake Total 400 1300 400 Output Total 1400 700 300 Balance -1000 600 100 Weight 53.977 kg Intake: Oral 400 1300 400 Output: Urine Catheter Amount 1400 Void Amount 700 300 Other: Meal Lunch Breakfast Percent of Meal Consumed 75% 100% Feeding Ability Assist with Tray Set Up Urine Appearance Clear Clear Urine Color Yellow Yellow Urine Odor Normal Exam: General: Alert, Awake, No acute Distress Eyes/N/T: EOMI, Head/Neck: neck supple, CV: RRR, No murmurs, Pulm: Clear b/l, no wheezing/rhonchi/rales Abd: soft, nontender, +BS x4 Ext: no clubbing/cyanosis/edema Neuro: Alert, no focal deficits, moves all extremities, Skin: warm/dry OBJ DATA Labs 09/02/22 05:31 09/01/22 05:40 Labs: Abnormal Lab Results 09/02/22 09/01/22 09/01/22 05:31 05:40 05:40 WBC Hgb 7.8 L 8.1 L Hct 23.9 L 24.2 L Immature Gran % (Auto) Neut % (Auto) Lymph % (Auto) Lymph # (Auto) Absolute Neutrophils Sodium 132 L Chloride Anion Gap 6.0 L Creatinine 0.5 L Glucose 206 H POC Glucose Hemoglobin A1c Calcium GGT AST ALT Lactate Dehydrogenase Total Protein Globulin Urine Occult Blood Urine Mucus 08/31/22 08/31/22 08/31/22 12:15 05:01 05:01 WBC Hgb Hct Immature Gran % (Auto) Neut % (Auto) Lymph % (Auto) Lymph # (Auto) Absolute Neutrophils Sodium 130 L Chloride 95 L Anion Gap Creatinine 0.5 L Glucose 234 H POC Glucose Hemoglobin A1c 6.3 H Calcium 8.4 L GGT 57 H AST 38 H ALT 40 H Lactate Dehydrogenase 240 H Total Protein 5.4 L Globulin 2.0 L Urine Occult Blood Small A Urine Mucus Few A 08/31/22 08/30/22 08/30/22 05:01 14:40 14:39 WBC 11.1 H Hgb 11.1 L Hct Immature Gran % (Auto) 0.6 H Neut % (Auto) 89.3 H Lymph % (Auto) 5.5 L Lymph # (Auto) 0.61 L Absolute Neutrophils 9.96 H Sodium Chloride Anion Gap Creatinine Glucose POC Glucose 213 H Hemoglobin A1c Calcium GGT AST ALT Lactate Dehydrogenase Total Protein Globulin Urine Occult Blood Urine Mucus Meds: Medications Acetaminophen (Acetaminophen 325 Mg Tablet) 650 mg PO Q6HP PRN; Protocol PRN Reason: Per Pain Protocol/Fever > 101 Last Admin: 08/31/22 21:54 Dose: 650 mg Hydrocodone Bitart/Acetaminophen (Hydrocodone/Apap 5/325mg Tablet) 0 tab PO Q4HP PRN; Protocol PRN Reason: Per Pain Protocol Last Admin: 08/31/22 03:30 Dose: 1 tab Albuterol/Ipratropium (Ipratropium/Albuterol 3 Ml Ampul.Neb) 3 ml NEB Q4HP PRN PRN Reason: Shortness Of Breath Amitriptyline HCl (Amitriptyline 10 Mg Tablet) 10 mg PO HS [facility] Last Admin: 09/01/22 20:30 Dose: 10 mg Aspirin (Aspirin 81 Mg Tab.Chew) 81 mg PO BID [facility] Last Admin: 09/02/22 07:56 Dose: 81 mg Bisacodyl (Bisacodyl 10 Mg Supp.Rect) 10 mg [place] Q2-3DAYS PRN PRN Reason: Constipation Bupropion HCl (Bupropion 150 Mg Tab.Xl.24h) 150 mg PO QAM [facility] Last Admin: 09/02/22 07:56 Dose: 150 mg Dextrose (Dextrose 50% 50 Ml Vial) 0 ml IV UD PRN PRN Reason: Per Sliding Scale Diagnostic Test (Pha) (Accu-Chek 1 Each Strip) 1 each FS ACHS [facility] Last Admin: 09/02/22 07:57 Dose: 1 each Docusate Sodium (Docusate Sodium 100 Mg Capsule) 100 mg PO BID [facility] Last Admin: 09/02/22 07:57 Dose: 100 mg Glucose (Dextrose 31 Gm Oral.Susp) 15 gm PO PRN PRN PRN Reason: Hypoglycemia Potassium Chloride 40 meq/ (Dextrose) 520 mls @ 130 mls/hr IV UD PRN PRN Reason: Potassium < 3 Magnesium Sulfate (Magnesium Sulfate) 2 gm in 50 mls @ 50 mls/hr IV UD PRN PRN Reason: Magnesium </= 1.6 Insulin Human Lispro (Insulin Lispro 1 Unit/0.01 Ml Unit) 0 unit SQ ACHS [facility]; Protocol Last Admin: 09/02/22 07:56 Dose: 6 unit Levothyroxine Sodium (Levothyroxine 88 Mcg Tablet) 88 mcg PO QAMAC [facility] Last Admin: 09/02/22 07:25 Dose: 88 mcg Magnesium Hydroxide (Magnesium Hydroxide 30 Ml Oral.Susp) 30 ml PO BIDP PRN PRN Reason: Constipation Morphine Sulfate (Morphine 4 Mg/Ml Vial) 0 mg IV Q1HP PRN; Protocol PRN Reason: Per Pain Protocol Ondansetron HCl (Ondansetron 4 Mg/2 Ml Vial) 4 mg IV Q4HP PRN PRN Reason: Nausea And Vomiting Last Admin: 08/31/22 08:52 Dose: 4 mg Polyethylene Glycol (Polyethylene Glycol 3350 17 Gm Packet) 17 gm PO DAILYP PRN PRN Reason: Constipation Potassium Chloride (Potassium Chloride 20 Meq Tablet) 40 meq PO UD PRN PRN Reason: Potssium is 3-3.5 Potassium Chloride (Potassium Chloride 20 Meq Tablet) 40 meq PO UD PRN PRN Reason: Potassium < 3 Senna (Sennosides 1 Tablet) 2 tab PO HS [facility] Last Admin: 09/01/22 20:29 Dose: 2 tab Senna (Sennosides 1 Tablet) 2 tab PO DAILYP PRN PRN Reason: Constipation Simvastatin (Simvastatin 10 Mg Tablet) 10 mg PO HS [facility] Last Admin: 09/01/22 20:30 Dose: 10 mg Sodium Biphosphate/Sodium Phosphate (Fleets Adult Enema) 1 dose [place] Q3-4DAYS PRN PRN Reason: Constipation Sodium Chloride (0.9 % Sodium Chloride 10 Ml Syringe) 10 ml IV Q8 [facility] Last Admin: 09/02/22 06:31 Dose: 10 ml A/P Narrative A/P Narrative: A: *Left hip fracture: s/p ORIF (08/30) *Acute hypoxic respiratory failure: post-op and o/n, RA since *Hyponatremia: stable *post-op anemia: slight drop to 7.8 *DM2: *HTN/HLD: *Depression/anxiety: *Hypothyroidism: cont synthroid *Soft BP: *Fever previous nitght: none since monitor, BC obtained P: -Dr. Polk for orthopedic surgery -Pain control -monitor H&H, transfuse at 7.0 -IS -SSI -Trend and follow-up sodium -Continue home statin, hold ACEI for soft BP -Continue home psych medications -PT/OT -CM for placement -ppx: asa 81mg bid per postop Ortho Time Spent With Patient Time: Total time spent is greater than 50% in coordination of care (as documented) at patient's floor/unit and/or counseling patient:
--- NOTE | 2022-09-02 09:49 | Orthopedic Progress Note ---
SUBJECTIVE Subjective Patient information: Note initiated : 09/02/22 at 9:48 am Service Date, if different from initiated Date: [] Patient: Jo-Ann Ho 77 y/o F admitted on 08/30/22 for Left hip pain. Chief Complaint: No c/o. Pt resting comfortably at time of exam. Principal diagnosis: L hip fx Constitutional Vitals: Vital Signs Temp Pulse Resp BP Pulse Ox O2 Del Method O2 Flow Rate 98.0 F 98 H 16 119/54 96 Room Air 1 09/02/22 07:00 09/02/22 07:00 09/02/22 07:00 09/02/22 07:00 09/02/22 07:00 09/02/22 07:00 09/02/22 03:55 Period Temp Pulse Resp BP Sys/Agrawal Pulse Ox O2 Del Method O2 Flow Rate Last 24 Hr 97.8 F-99.1 F 78-114 14-20 99-119/53-67 93-96 Nasal Cannula- Room Air 1 Intake and Output 09/01/22 09/02/22 09/02/22 19:59 03:59 11:59 Intake Total 400 1300 400 Output Total 1400 700 300 Balance -1000 600 100 Weight 119 lb Intake & Output: Intake & Output 09/01/22 09/02/22 09/02/22 19:59 03:59 11:59 Intake Total 400 1300 400 Output Total 1400 700 300 Balance -1000 600 100 Weight 119 lb Intake: Oral 400 1300 400 Output: Urine Catheter Amount 1400 Void Amount 700 300 Other: Meal Lunch Breakfast Percent of Meal Consumed 75% 100% Feeding Ability Assist with Tray Set Up Urine Appearance Clear Clear Urine Color Yellow Yellow Urine Odor Normal Additional findings Additional findings: bandages c/d/i NVI-distal OBJ DATA Labs 09/02/22 05:31 09/01/22 05:40 Labs: Abnormal Lab Results 09/02/22 09/01/22 09/01/22 05:31 05:40 05:40 WBC Hgb 7.8 L 8.1 L Hct 23.9 L 24.2 L Immature Gran % (Auto) Neut % (Auto) Lymph % (Auto) Lymph # (Auto) Absolute Neutrophils Sodium 132 L Chloride Anion Gap 6.0 L Creatinine 0.5 L Glucose 206 H POC Glucose Hemoglobin A1c Calcium GGT AST ALT Lactate Dehydrogenase Total Protein Globulin Urine Occult Blood Urine Mucus 08/31/22 08/31/22 08/31/22 12:15 05:01 05:01 WBC Hgb Hct Immature Gran % (Auto) Neut % (Auto) Lymph % (Auto) Lymph # (Auto) Absolute Neutrophils Sodium 130 L Chloride 95 L Anion Gap Creatinine 0.5 L Glucose 234 H POC Glucose Hemoglobin A1c 6.3 H Calcium 8.4 L GGT 57 H AST 38 H ALT 40 H Lactate Dehydrogenase 240 H Total Protein 5.4 L Globulin 2.0 L Urine Occult Blood Small A Urine Mucus Few A 08/31/22 08/30/22 08/30/22 05:01 14:40 14:39 WBC 11.1 H Hgb 11.1 L Hct Immature Gran % (Auto) 0.6 H Neut % (Auto) 89.3 H Lymph % (Auto) 5.5 L Lymph # (Auto) 0.61 L Absolute Neutrophils 9.96 H Sodium Chloride Anion Gap Creatinine Glucose POC Glucose 213 H Hemoglobin A1c Calcium GGT AST ALT Lactate Dehydrogenase Total Protein Globulin Urine Occult Blood Urine Mucus Meds: Medications Acetaminophen (Acetaminophen 325 Mg Tablet) 650 mg PO Q6HP PRN; Protocol PRN Reason: Per Pain Protocol/Fever > 101 Last Admin: 08/31/22 21:54 Dose: 650 mg Hydrocodone Bitart/Acetaminophen (Hydrocodone/Apap 5/325mg Tablet) 0 tab PO Q4HP PRN; Protocol PRN Reason: Per Pain Protocol Last Admin: 08/31/22 03:30 Dose: 1 tab Albuterol/Ipratropium (Ipratropium/Albuterol 3 Ml Ampul.Neb) 3 ml NEB Q4HP PRN PRN Reason: Shortness Of Breath Amitriptyline HCl (Amitriptyline 10 Mg Tablet) 10 mg PO [facility] Last Admin: 09/01/22 20:30 Dose: 10 mg Aspirin (Aspirin 81 Mg Tab.Chew) 81 mg PO BID [facility] TO [facility] Last Admin: 09/02/22 07:56 Dose: 81 mg Bisacodyl (Bisacodyl 10 Mg Supp.Rect) 10 mg LA Q2-3DAYS PRN PRN Reason: Constipation Bupropion HCl (Bupropion 150 Mg Tab.Xl.24h) 150 mg PO QAM PEND[facility] S[facility] TO [facility] Last Admin: 09/02/22 07:56 Dose: 150 mg Dextrose (Dextrose 50% 50 Ml Vial) 0 ml IV UD PRN PRN Reason: Per Sliding Scale Diagnostic Test (Pha) (Accu-Chek 1 Each Strip) 1 each FS [facility] PENDING SALE TO [facility] Last Admin: 09/02/22 07:57 Dose: 1 each Docusate Sodium (Docusate Sodium 100 Mg Capsule) 100 mg PO BID [facility] S[facility] TO [facility] Last Admin: 09/02/22 07:57 Dose: 100 mg Glucose (Dextrose 31 Gm Oral.Susp) 15 gm PO PRN PRN PRN Reason: Hypoglycemia Potassium Chloride 40 meq/ (Dextrose) 520 mls @ 130 mls/hr IV UD PRN PRN Reason: Potassium < 3 Magnesium Sulfate (Magnesium Sulfate) 2 gm in 50 mls @ 50 mls/hr IV UD PRN PRN Reason: Magnesium </= 1.6 Insulin Human Lispro (Insulin Lispro 1 Unit/0.01 Ml Unit) 0 unit SQ [facility]; Protocol Last Admin: 09/02/22 07:56 Dose: 6 unit Levothyroxine Sodium ([facility]othy[facility]ine 88 Mcg Tablet) [facility] Last Admin: 09/02/22 07:25 Dose: 88 mcg Magnesium Hydroxide (Magnesium Hydroxide 30 Ml Oral.Susp) 30 ml PO BIDP PRN PRN Reason: Constipation Morphine Sulfate (Morphine 4 Mg/Ml Vial) 0 mg IV Q1HP PRN; Protocol PRN Reason: Per Pain Protocol Ondansetron HCl (Ondansetron 4 Mg/2 Ml Vial) 4 mg IV Q4HP PRN PRN Reason: Nausea And Vomiting Last Admin: 08/31/22 08:52 Dose: 4 mg Polyethylene Glycol (Polyethylene Glycol 3350 17 Gm Packet) 17 gm PO DAILYP PRN PRN Reason: Constipation Potassium Chloride (Potassium Chloride 20 Meq Tablet) 40 meq PO UD PRN PRN Reason: Potssium is 3-3.5 Potassium Chloride (Potassium Chloride 20 Meq Tablet) 40 meq PO UD PRN PRN Reason: Potassium < 3 Senna (Sennosides 1 Tablet) 2 tab PO HS PENDING SALE TO [facility] Last Admin: 09/01/22 20:29 Dose: 2 tab Senna (Sennosides 1 Tablet) 2 tab PO DAILYP PRN PRN Reason: Constipation Simvastatin (Simvastatin 10 Mg Tablet) 10 mg PO [facility] Last Admin: 09/01/22 20:30 Dose: 10 mg Sodium Biphosphate/Sodium Phosphate (Fleets Adult Enema) 1 dose LA Q3-4DAYS PRN PRN Reason: Constipation Sodium Chloride (0.9 % Sodium Chloride 10 Ml Syringe) 10 ml IV Q8 [facility] Last Admin: 09/02/22 06:31 Dose: 10 ml A/P Assessment and plan (1) Closed fracture of left hip: Status: Acute Comment: Mobilize with PT discharge to home v SNF per hospitalist. f/u at [facility] in 2 weeks. Time Spent With Patient Time: Total time spent is greater than 50% in coordination of care (as documented) at patient's floor/unit and/or counseling patient: Subsequent: Total time with patient: Less than 25 minutes
--- NOTE | 2022-09-02 12:15 | Discharge Summary ---
Discharge Provider Provider IMPORTANT FOLLOW-UP INFORMATION FOR PCP: Patient information: Note initiated : 09/02/22 at 12:13 pm Service Date, if different from initiated Date: [] Patient: Jo-Ann Ho 77 y/o F admitted on 08/30/22 for Left hip pain. Chief Complaint: [] Date of admission: 08/30/22 21:53 Discharge date: 09/02/22 Primary care physician: Abril Hutchins Consults: 08/30/22 Consult to Physician [CONS] Stat Comment: Consulting Provider: Gulshan Polk Reason For Exam: Physician to Consult Consult to Physician [CONS] Stat Comment: Consulting Provider: Abilio Smith Reason For Exam: Physician to Consult COURSE Hospital Course Hospital course: History of present illness: Ms. Ho is a 77 year old F Presents to the ED after fall due to tripping onto her left hip. Patient states she was getting up from her recliner and she tripped on her shoes. She had immediate pain when she fell to the ground on her left side. Work-up in the ED revealed left hip fracture. Dr. Polk was contacted from the ED. Patient denies any recent illnesses. No chest pain shortness of breath. Patient has a history of diabetes hypertension hypothyroidism depression anxiety hyperlipidemia. EKG normal sinus rhythm. 08/31 Patient slept okay. Hip pain controlled. She did have an episode of nausea vomiting while starting to get up to work with PT today. She was also on oxygen postop and through the night. Trialing on room air this morning and she seems to be doing well. We will be aggressive with incentive spirometry. Hyponatremia on today's labs. 09/01 Patient febrile overnight. Blood cultures obtained. pt on room air. Soft BP o/n, hold home acei. Mild tachycardia but looks like that is chronic per old records. Postop anemia. Patient says she is feeling well today. Denies chest pain coughing shortness of breath. Denies dysuria. 09/02 Patient sleeping but arousable. No overnight or new complaints. Afebrile. Blood cultures negative thus far. Hemoglobin 7.8. Slight drop from 8.1 yesterday. Sodium mildly low stable. Patient ambulating and stable while ambulating and desired to go home. Ortho okay for home discharge. Stable for discharge A: *Left hip fracture: s/p ORIF (08/30) *Acute hypoxic respiratory failure: post-op and o/n, RA since *Hyponatremia: stable *post-op anemia: slight drop to 7.8 *DM2: *HTN/HLD: *Depression/anxiety: *Hypothyroidism: cont synthroid *Soft BP: *Fever previous nitght: none since monitor, BC obtained P: -f/u with Dr. Polk -hold ACEI for soft BP Discharge diagnosis: Left hip fracture hyponatremia anemia diabetes Secondary discharge diagnosis: Hypertension depression anxiety hypothyroidism Time Spent with Patient Time attestation: Total time spent providing and/or coordinating discharge services: Time spent: Greater than 30 minutes EXAM Constitutional Vitals: Temp Pulse Resp BP Pulse Ox O2 Del Method O2 Flow Rate 97.9 F 97 H 16 101/57 96 Room Air 1 09/02/22 11:00 09/02/22 11:00 09/02/22 11:00 09/02/22 11:00 09/02/22 11:00 09/02/22 11:00 09/02/22 03:55 Discharge Data Data Completed and Pending Labs on day of discharge: Labs from last 24 hours 09/02/22 09/02/22 05:31 05:31 Hgb 7.8 L Hct 23.9 L PT 13.9 INR 1.0 Preliminary micro results at discharge 08/31/22 00:47 Blood Culture - Preliminary Blood 08/31/22 00:40 Blood Culture - Preliminary Blood Discharge Plan Patient/Caregiver Discharge Instructions Activity: increase activity as tolerated Diet: Consistent Carbohydrate Prescriptions: New Aspirin 81 mg PO BID Qty: 54 0RF hydrocodone-acetaminophen 5-325 mg Tablet 1 tab PO Q6HP PRN (Reason: Per Pain Protocol) Qty: 10 0RF Continued simvastatin 10 mg tablet 10 mg PO HS glipizide 5 mg tablet extended release 24hr 5 mg PO QAM levothyroxine 88 mcg tablet 88 mcg PO QAM amitriptyline 10 mg tablet 10 mg PO HS metformin 1,000 mg tablet 1,000 mg PO BID diclofenac sodium 75 mg tablet,delayed release (DR/EC) 75 mg PO QAM bupropion HCl 150 mg tablet extended release 24 hr 150 mg PO QAM Discontinued lisinopril 2.5 mg tablet 2.5 mg PO HS Follow Up Plan Follow up with: Gulshan Polk MD [Physician] - Abril Hutchins MD [Primary Care Provider] - Patient Disposition: Home Health Service Prognosis: Fair Overall status at discharge: patient is progressing back to baseline Discharge Orders: Discharge Order (Routine); Ordered 09/02/22 Ordered By: Abilio Smith
--- NOTE | 2022-09-13 16:33 | Operative Note ---
DATE OF OPERATION: 08/30/2022 DATE OF PROCEDURE: 08/30/2022 PREOPERATIVE DIAGNOSIS: Left femoral neck fracture, subcapital/transcervical. POSTOPERATIVE DIAGNOSIS: Left femoral neck fracture, subcapital/transcervical. OPERATION PROPOSED: Left hip hemiarthroplasty. OPERATION PERFORMED: Same. SURGEON: Gulshan Polk M.D. SEWING PATTERN LAYOUT TECHNICIAN: Pedro Winn PA-C. The expertise and technical skill of this provider were required throughout the case. The PA assisted with preoperative coordination, intraoperative retraction, wound closure, and dressing and splint application, as well as postoperative documentation and care coordination. INDICATIONS: This is a lady with a displaced femoral neck fracture in need of operative treatment. DESCRIPTION OF PROCEDURE: Informed consent was obtained. She was taken to the operating room and provided with appropriate anesthetic and prophylactic antibiotics. She was carefully positioned. Her hip was prepped sterilely. A standard anterior approach to the hip was performed. I dissected through the fascia of the tensor musculature up and over the muscle belly. The hip capsule was cut and T'd. Femoral head was removed and a femoral neck cut was performed, refining the neck just above the fracture. I then reamed and broached this femoral canal. I cemented in place an appropriately sized Bartholomew stem, which was paired with a bipolar head. The wounds were irrigated thoroughly and the capsule was closed with an Ethibond. The fascia of the tensor musculature was repaired with an 0 Vicryl, a 2-0 inverted deep dermal and toshia. The procedure was tolerated well. No complications. ESTIMATED BLOOD LOSS: 200 mL. GDD:stephen Job ID: [id number] Doc ID: [id number] Gulshan Polk MD
== END 2022-09-02 14:45 | disposition home health service (06) | DRG 521 ==
LOC: ED 14:06 → SUR 18:45 → ED 18:47 → SUR 18:47 → MEDSUR 21:53
PROVIDERS: ADMIT Internal Medicine; ATTEND Orthopaedic Surgery Orthopaedic Surgery of the Spine